=== PATIENT | female | born 1935 ===

== ENCOUNTER 2017-01-09 08:42 | Inpatient (IN) | payer MEDICAID, SELFPAY ==
--- NOTE | 2017-01-09 09:16 | ED PDOC ---
HPI: SOB/CHF/COPD Time Seen by Provider: 01/09/17 08:54 Chief Complaint (Nursing): Shortness Of Breath Chief Complaint (Provider): SOB, dizziness History Per: Patient History/Exam Limitations: no limitations Onset/Duration Of Symptoms: Days Current Symptoms Are (Timing): Still Present Associated Symptoms: Dizziness Additional Complaint(s): The pt is a 81yo female, PMHx of hypothyroidsm, accompanied to the ED by her family, presents for evaluation of shortness of breath worse upon exertion with associated dizziness. Per pt's family, the pt is unable to walk for long durations without feeling short of breath. Pt additionally complaining of right sided arm pain. She denies any numbness or tingling. She offers no additional medical complaints. PCP: Melissa SINGH Past Medical History Reviewed: Historical Data, Nursing Documentation, Vital Signs Vital Signs: Last Vital Signs Temp 97.9 F 01/09/17 11:24 Pulse 60 01/09/17 11:24 Resp 18 01/09/17 11:24 BP 165/67 H 01/09/17 11:24 Pulse Ox 96 01/09/17 10:01 - Medical History PMH: HTN, Hypercholesterolemia, Hypothyroidism - Family History Family History: States: Unknown Family Hx - Living Arrangements Living Arrangements: With Family - Social History Current smoker - smoking cessation education provided: No Alcohol: None Drugs: Denies - Home Medications Home Medications: Ambulatory Orders Medication Instructions Recorded Amoxicillin/Clavulanate [Augmentin 1 tab PO Q12H 01/09/17 875 MG-125 MG Tab] Calcium Carbonate/Vitamin D3 1 tab PO DAILY 01/09/17 [Calcium 600 + Vit D Tablet] Losartan [Cozaar] 25 mg PO DAILY 01/09/17 - Allergies Allergies/Adverse Reactions: Allergies Allergy/AdvReac Type Severity Reaction Status Date / Time No Known Allergies Allergy Verified 01/09/17 09:48 Review of Systems ROS Statement: Except As Marked, All Systems Reviewed And Found Negative Cardiovascular: Positive for: Light Headedness Respiratory: Positive for: Shortness of Breath, SOB with Exertion Physical Exam - Reviewed Nursing Documentation Reviewed: Yes Vital Signs Reviewed: Yes - Physical Exam Appears: Positive for: Well, Non-toxic, No Acute Distress Head Exam: Positive for: ATRAUMATIC, NORMAL INSPECTION, NORMOCEPHALIC Skin: Positive for: Normal Color, Warm, DRY Eye Exam: Positive for: EOMI, Normal appearance, PERRL Neck: Positive for: Normal, Supple Cardiovascular/Chest: Positive for: Regular Rate, Rhythm. Negative for: Murmur , Other (JVD, hepatojugular reflex) Respiratory: Positive for: Crackles (present bilaterally at base of lungs). Negative for: Respiratory Distress Extremity: Positive for: Normal ROM. Negative for: Pedal Edema, Swelling Neurologic/Psych: Positive for: Alert, Oriented - Laboratory Results Result Diagrams: 01/09/17 09:17 01/09/17 09:17 - ECG ECG: Positive for: Interpreted By Me, Viewed By Me ECG Rhythm: Positive for: Sinus Bradycardia. Negative for: ST/T Changes Rate: 51 O2 Sat by Pulse Oximetry: 98 (RA) Pulse Ox Interpretation: Normal Medical Decision Making Medical Decision Making: Time: 0900 Impression: SOB with exertion Plan: * CXR * EKG * Bloodwork * Reassess Scribe Attestation: Documented by Luz Lewis acting as a scribe for Claudia Louise MD. Provider Attestation: All medical record entries made by the Scribe were at my direction and personally dictated by me. I have reviewed the chart and agree that the record accurately reflects my personal performance of the history, physical exam, medical decision making, and the department course for this patient. I have also personally directed, reviewed, and agree with the discharge instructions and disposition. Disposition - Clinical Impression Clinical Impression: Exertional dyspnea - Patient ED Disposition Is Patient to be Admitted: Yes Doctor Will See Patient In The: Hospital - Disposition Disposition: Transfer of Care Disposition Time: 11:00 Condition: FAIR - Pt Status Changed To: Hospital Disposition Of: Observation - POA Present On Arrival: None
[2017-01-09 09:34] LABS: BASO % 0.6 % (0.0-2.0); EOS # 0.2 K/uL (0.0-0.7); EOS % 3.9 % (0.0-4.0); HEMATOCRIT 31.4 % (34.0-47.0); LYMPH # 1.6 K/uL (1.0-4.3); LYMPH % 32.5 % (20.0-40.0); MEAN CELL VOLUME 91.2 fl (81.0-99.0); MEAN CORPUSCULAR HEMOGLOBIN 30.5 pg (27.0-31.0); MEAN CORPUSCULAR HGB CONC 33.4 g/dL (33.0-37.0); MEAN PLATELET VOLUME 10.2 fl (7.2-11.7); MONO # 0.5 K/uL (0.0-0.8); MONO % 9.5 % (0.0-10.0); NEUT # 2.6 K/uL (1.8-7.0); NEUT % 53.5 % (50.0-75.0); NRBC % 0.1 % (0.0-0.0); RED CELL DISTRIBUTION WIDTH 13.3 % (11.5-14.5); WHITE BLOOD COUNT 4.8 K/uL (4.8-10.8)
[2017-01-09 09:57] LABS: CHLORIDE 108 mmol/L (98-107)
[2017-01-09 09:58] LABS: POTASSIUM 4.4 MMOL/L (3.6-5.0); SODIUM 140 mmol/l (132-148)
[2017-01-09 10:00] LABS: ALB/GLOB RATIO 1.2 (1.0-2.1); ALKALINE PHOSPHATASE 102 U/L (38-126); AST/SGOT 37 U/L (14-36); BILIRUBIN,TOTAL 0.8 mg/dl (0.2-1.3); BLOOD UREA NITROGEN 17 mg/dl (7-17); CARBON DIOXIDE 26 mmol/L (22-30); GFR AFRICAN-AMERICAN > 60; TOTAL PROTEIN 7.8 G/DL (6.3-8.2)
[2017-01-09 10:01] LABS: ALT/SGPT 38 U/L (9-52); CALCIUM 9.5 mg/dL (8.4-10.2); GLUCOSE,RANDOM 88 mg/dL (65-105)
[2017-01-09 10:11] LABS: PARTIAL THROMBOPLASTIN TIME 29.1 Seconds (25.6-37.1)
--- NOTE | 2017-01-09 12:20 | RAD ---
HISTORY: exertional dyspnea COMPARISON: Chest x-ray performed 01/03/17 TECHNIQUE: Chest PA and lateral FINDINGS: LUNGS: No focal consolidation. Please note that chest x-ray has limited sensitivity for the detection of pulmonary masses. PLEURA: No significant pleural effusion identified. No definite pneumothorax . CARDIOVASCULAR: Heart size appears within normal limits. Ectatic aorta containing atherosclerotic calcifications. OSSEOUS STRUCTURES: Osseous demineralization. Degenerative changes. VISUALIZED UPPER ABDOMEN: Unremarkable. OTHER FINDINGS: None. IMPRESSION: No focal consolidation, significant pleural effusion, or definite pneumothorax identified.
--- NOTE | 2017-01-09 12:49 | CP.PCM.HP ---
History of Present Illness - History of Present Illness History of Present Illness: 81 year old female, PMHx of hypothyroidsm and HTN presented to [facility] for worsening dyspnea on exertion and fatigue. Patient reports exertional dyspnea began approximately 1 year ago. However, she experienced worsening dyspnea on exertion with associated dizziness yesterday. Pt unable to walk 1 block, she was accompanied by daughters at that time and she was taken home to rest where symptoms improved. Currently patient does not have any dizziness or shortness of breath. She denies hx of NH, asthma, COPD, CHF and smoking history. She was seen at [facility] last week with similar symptoms, sent for echo scheduled for this Saturday. She is accompanied by her family who confirm the history the patient has provided. PMD: [facility]: Dr. Aden PMH: HTN, Hypothyroidism Medications: Losartan 25mg PO daily Levothyroxine 75mcg Allergies: NKDA Social: denies tobacco, etoh, illicit drug use. ED course: VS: T: 98.3, HR: 55, BP:189/73, RR: 18, SpO2: 98%. CBC: 4.8 > 10.5 /31.4 <119 CMP: 140/4.4 108/26 17/1.0 < 88 AST: 37 ALT: 38 Troponins negative x1 ProBNP: 290 CXR:No focal consolidation, significant pleural effusion, or definite pneumothorax identified. EKG: Sinus nuvia : hr 51. Present on Admission - Present on Admission Any Indicators Present on Admission: No Review of Systems - Constitutional Constitutional: absent: Anorexia, Chills, Fever Past Patient History - Past Social History Alcohol: None Drugs: Denies - CARDIAC Hx Hypercholesterolemia: Yes Hx Hypertension: Yes - NEUROLOGICAL Hx Dizziness: Yes - ENDOCRINE/METABOLIC Hx Hypothyroidism: Yes - MUSCULOSKELETAL/RHEUMATOLOGICAL Hx Musculoskeletal Disorders: Yes - PSYCHIATRIC Hx Substance Use: No - SURGICAL HISTORY Hx Surgeries: No - ANESTHESIA Hx Anesthesia: No Meds Allergies/Adverse Reactions: Allergies Allergy/AdvReac Type Severity Reaction Status Date / Time No Known Allergies Allergy Verified 01/09/17 09:48 Physical Exam - Constitutional Appears: Non-toxic - Head Exam Head Exam: NORMAL INSPECTION - Eye Exam Eye Exam: Normal appearance - ENT Exam ENT Exam: Mucous Membranes Moist - Respiratory Exam Respiratory Exam: Rales (bilateral posterior lung bases), NORMAL BREATHING PATTERN (breathing comfortably on room air) - Cardiovascular Exam Cardiovascular Exam: Bradycardia (sinus), +S1, +S2 - GI/Abdominal Exam GI & Abdominal Exam: Normal Bowel Sounds, Soft - Extremities Exam Extremities exam: Positive for: normal inspection. Negative for: pedal edema - Neurological Exam Neurological exam: Alert, CN II-XII Intact, Oriented x3 - Psychiatric Exam Psychiatric exam: Normal Affect, Normal Mood - Skin Skin Exam: Dry, Intact, Normal Color Results - Vital Signs Recent Vital Signs: Last Vital Signs Temp 97.8 F 01/09/17 12:42 Pulse 59 L 01/09/17 12:42 Resp 18 01/09/17 12:42 BP 130/68 01/09/17 12:42 Pulse Ox 99 01/09/17 12:42 - Labs Result Diagrams: 01/09/17 09:17 01/09/17 09:17 Assessment & Plan (1) Exertional dyspnea Assessment and Plan: Chronic exertional dyspnea, recent worsening with associated dizziness, likely related to bradycardia. Given that patients ProBNP was WNL and bradycardia was recorded on customs verifier, symptoms are likely secondary to bradycardia and not CHF. Will follow up cardiology recommendations. -Echo ordered, pending report. -Will admit to telemetry: -echo done, pending report. -EKG: sinus bradycardia -monitor vital signs -Cardiology consult : case discussed with Dr. Teddy Almonte Status: Acute (2) Abnormal CXR (chest x-ray) Assessment and Plan: CXR: Impression: Heart size appears within normal limits. Ectatic aorta containing atherosclerotic calcifications. Osseous demineralization. Degenerative changes. No focal consolidation, significant pleural effusion, or definite pneumothorax identified. -exam +crackles, rule out pneumonia -start rocephin empirically Status: Acute (3) HTN (hypertension) Assessment and Plan: -patient did not take BP medication today, will administer. -continue home medications -losartan 25 mg PO Status: Acute (4) Hypothyroidism Assessment and Plan: -not controlled: TSHL 7.25 -continue home medications : Levothyroxine 75mcg -f/u repeat TSH, T4 Status: Acute (5) DVT prophylaxis Assessment and Plan: SCDS for now given thrombocytopenia Status: Acute
[2017-01-09] MEDS: Amoxicillin-Clav 875-125 mg Tab PO SCH (21:06)
[2017-01-10] MEDS ORDERED: Alum-Mag Hydrox-Simethicone Susp (30 mL) PO ONE (04:04)
[2017-01-10 04:23] LABS: RBC URINE 1 /hpf (0-3); URINE BILIRUBIN NEGATIVE (NEGATIVE); URINE BLOOD NEGATIVE (NEGATIVE); URINE COLOR YELLOW (YELLOW); URINE GLUCOSE (UA) NEG (Normal); URINE KETONE NEGATIVE (NEGATIVE); URINE LEUKOCYTE ESTERASE NEG Leu/uL (Negative); URINE PROTEIN NEGATIVE (NEGATIVE); URINE UROBILINOGEN 0.2-1.0 mg/dL (0.2-1.0); WBC URINE 1 /hpf (0-5)
[2017-01-10 04:35] LABS: BLOOD UREA NITROGEN 14 mg/dl (7-17); CALCIUM 9.3 mg/dL (8.4-10.2); CARBON DIOXIDE 27 mmol/L (22-30); CHLORIDE 107 mmol/L (98-107); GFR AFRICAN-AMERICAN > 60; GLUCOSE,RANDOM 90 mg/dL (65-105); POTASSIUM 4.4 MMOL/L (3.6-5.0); SODIUM 143 mmol/l (132-148)
[2017-01-10 04:41] LABS: BASO % 0.8 % (0.0-2.0); EOS # 0.2 K/uL (0.0-0.7); EOS % 3.8 % (0.0-4.0); HEMATOCRIT 30.2 % (34.0-47.0); LYMPH # 1.8 K/uL (1.0-4.3); LYMPH % 32.9 % (20.0-40.0); MEAN CELL VOLUME 91.5 fl (81.0-99.0); MEAN CORPUSCULAR HEMOGLOBIN 30.6 pg (27.0-31.0); MEAN CORPUSCULAR HGB CONC 33.4 g/dL (33.0-37.0); MEAN PLATELET VOLUME 10.2 fl (7.2-11.7); MONO # 0.6 K/uL (0.0-0.8); NEUT # 2.9 K/uL (1.8-7.0); NEUT % 51.5 % (50.0-75.0); NRBC % 0.1 % (0.0-0.0); RED CELL DISTRIBUTION WIDTH 13.5 % (11.5-14.5); WHITE BLOOD COUNT 5.6 K/uL (4.8-10.8)
--- NOTE | 2017-01-10 04:46 | CP.PCM.PCO ---
Addendum Addendum: 01/10/17 04:05 CC: Chest pain onset with brief transient heart block 81F developed constant chest pressure radiating into her back after development of transient heart block without associated dyspnea, tachypnea, diaphoresis, dizziness, headache, or nausea. She does report worsening on deep inspiration but no change with cough and denies reflux-like symptoms. She describes experiencing similar pain like this intermittently prior to admission. Interventions: Oxygen, EKG, CK-MB/Troponins w/ AM labs, Mylanta VSS: HR- 53(SR), BP- 158/75, SpO2- 98% Review of telemetry strip showing 2 degree 2:1 Heart block EKG: SB, HR-53, no ST-T changes, no acute changes when compared to prior EKG 01/09 GEN: NAD, verbal, no diaphoresis PULM: no tachypnea, non-labored, good air entry, bibasilar rales/no wheeze/no rhonchi CARDIO: SB, regular, no murmurs appreciated ABD: soft, NTND EXT: no edema, palpable pulses 81F with chest pressure, EKG w/o acute changes, Troponins thus far negative. Ddx angina vs. GERD vs. pleuritic. Patient no longer with chest pressure, but continues to go in and out of heart block. - Oxygen, 2LNC - CBC, BMP, CK-MB, Troponin, TSH/T4 - EKG - Mylanta 30ml, PO, x1 - c/w Telemetry monitoring - d/w Dr Bee who recommended adding a d-dimer
[2017-01-10 04:52] LABS: T4 7.18 ug/dl (5.5-11.0)
[2017-01-10] MEDS: Levothyroxine 75 MCG TAB PO SCH (05:54)
--- NOTE | 2017-01-10 06:28 | CP.PCM.PN ---
Subjective - Date & Time of Evaluation Date of Evaluation: 01/10/17 Time of Evaluation: 07:50 - Subjective Subjective: Overnight events: pt had episode of chest pain, pain on inspiriation No acute EKG changes, troponins negative. D.Dimer: 0.08 L Patient seen and examined bedside this morning. Endorses that symptoms of chest pain and pain on inspiration have resolved. Resting comfortably in bed. No complaints at present of chest pain, dyspnea, or dizziness. She notes long hx of left lower extremity cramping has been going on for at least 1 year. Right neck cervical LN present for 4-5 months. Patient reports decrease in size and tenderness of node. Objective - Vital Signs/Intake and Output Vital Signs (last 24 hours): Temp Pulse Resp BP Pulse Ox 98.1 F 56 L 18 153/75 H 100 01/10/17 04:56 01/10/17 04:56 01/10/17 04:56 01/10/17 04:56 01/10/17 04:56 - Medications Medications: Current Medications Amoxicillin/Clavulanate Potassium (Augmentin 875 Mg-125 Mg Tab) 1 tab PO Q12 [facility] Last Admin: 01/09/17 21:06 Dose: 1 tab Levothyroxine Sodium (Synthroid) 75 mcg PO DAILY@0630 [facility] Last Admin: 01/10/17 05:54 Dose: 75 mcg Losartan Potassium (Cozaar) 25 mg PO DAILY [facility] - Labs Labs: 01/10/17 04:00 01/10/17 04:00 PT 10.9 Seconds (9.8-13.1) 01/09/17 09:17 INR 1.0 (0.9-1.2) 01/09/17 09:17 APTT 29.1 Seconds (25.6-37.1) 01/09/17 09:17 - Constitutional Appears: No Acute Distress - Head Exam Head Exam: NORMAL INSPECTION - Eye Exam Eye Exam: Normal appearance - ENT Exam ENT Exam: Mucous Membranes Moist - Respiratory Exam Respiratory Exam: Rales (bilateral lung bases), NORMAL BREATHING PATTERN. absent: Accessory Muscle Use, Respiratory Distress - Cardiovascular Exam Cardiovascular Exam: Bradycardia, REGULAR RHYTHM, +S1, +S2 - GI/Abdominal Exam GI & Abdominal Exam: Soft. absent: Tenderness - Extremities Exam Extremities Exam: absent: Pedal Edema, Tenderness - Neurological Exam Neurological Exam: Alert, Awake, CN II-XII Intact - Skin Skin Exam: Dry, Intact, Normal Color Assessment and Plan (1) Exertional dyspnea Assessment & Plan: 81 year old female with HTN and uncontrolled Hypothyroidism presented with worsening exertional dyspnea with new onset bradycardia admitted for same, found to have 2:1 AV block. Exertional dyspnea: chronic, recent worsening with associated dizziness, secondary to 2:1 AV block with bradycardia. -echo done, pending report. -EKG: sinus bradycardia, 2:1 AV block on EKG this AM -Patient seen with Dr. Castrejon (cardiology): recommends pacemaker placement. Will discuss with family today, if amenable will schedule for surgery. -monitor vital signs Status: Acute (2) Abnormal CXR (chest x-ray) Assessment & Plan: CXR: Impression: Heart size appears within normal limits. Ectatic aorta containing atherosclerotic calcifications. Osseous demineralization. Degenerative changes. No focal consolidation, significant pleural effusion, or definite pneumothorax identified. -exam +crackles, rule out pneumonia -on rocephin (day 2). consider d/c given patient is afebrile without leukocytosis. Status: Acute (3) HTN (hypertension) Assessment & Plan: -mildly elevated. likely in response to patients bradycardia -continue home medications for now. -losartan 25 mg PO -consider increasing to BID Status: Acute (4) Hypothyroidism Assessment & Plan: -not controlled: TSH: 7.25 -->12.7, T4:7.18 -dose recently increased from levothroxine 50 mcg to 75mcg -continue current dose: Levothyroxine 75mcg Status: Chronic (5) Anemia Assessment & Plan: Normocytic anemia -chronic -hgb: 10.1 -monitor. Status: Chronic (6) DVT prophylaxis Assessment & Plan: scds for now given thrombocytopenia Status: Acute (7) Cervical lymphadenopathy Assessment & Plan: chronic x 4-5 months as per patient, however after chart review pt had CT neck in 2014 for same: . patient started on augmentin as outpatient, day 8 of augmentin. Patient reports improvement of size and tenderness of LN. will monitor while admitted, consider bx if no improvement with antibiotics. Status: Chronic
[2017-01-10] MEDS: Amoxicillin-Clav 875-125 mg Tab PO SCH ×2 (08:25→21:23)
--- NOTE | 2017-01-10 11:00 | CP.PCM.CON ---
History of Present Illness - History of Present Illness History of Present Illness: Full Note Dictated. 2:1 A:V block Hypertension Hypothyroidism Pt will need a PPM Will discuss it with her and her family and if they are agreeable will arrange it. Past Patient History - Past Social History Alcohol: None Drugs: Denies - CARDIAC Hx Hypercholesterolemia: Yes Hx Hypertension: Yes - NEUROLOGICAL Hx Dizziness: Yes - ENDOCRINE/METABOLIC Hx Hypothyroidism: Yes - HEMATOLOGICAL/ONCOLOGICAL Hx AIDS: No Hx Human Immunodeficiency Virus (HIV): No - MUSCULOSKELETAL/RHEUMATOLOGICAL Hx Musculoskeletal Disorders: Yes - PSYCHIATRIC Hx Substance Use: No - SURGICAL HISTORY Hx Surgeries: No - ANESTHESIA Hx Anesthesia: No Meds Allergies/Adverse Reactions: Allergies Allergy/AdvReac Type Severity Reaction Status Date / Time No Known Allergies Allergy Verified 01/09/17 09:48 - Medications Medications: Current Medications Amoxicillin/Clavulanate Potassium (Augmentin 875 Mg-125 Mg Tab) 1 tab PO Q12 [facility] Last Admin: 01/10/17 08:25 Dose: 1 tab Levothyroxine Sodium (Synthroid) 75 mcg PO DAILY@0630 [facility] Last Admin: 01/10/17 05:54 Dose: 75 mcg Losartan Potassium (Cozaar) 25 mg PO DAILY [facility] Last Admin: 01/10/17 08:25 Dose: 25 mg Results - Vital Signs Recent Vital Signs: Last Vital Signs Temp 97.8 F 01/10/17 08:00 Pulse 52 L 01/10/17 09:00 Resp 18 01/10/17 08:00 BP 163/75 H 01/10/17 08:25 Pulse Ox 97 01/10/17 08:00 - Labs Result Diagrams: 01/10/17 04:00 01/10/17 04:00 Labs: Laboratory Results - last 24 hr 01/09/17 01/10/17 01/10/17 18:23 04:00 04:00 WBC 5.6 RBC 3.30 L Hgb 10.1 L Hct 30.2 L MCV 91.5 MCH 30.6 MCHC 33.4 RDW 13.5 Plt Count 115 L MPV 10.2 Neut % (Auto) 51.5 Lymph % (Auto) 32.9 [place] % (Auto) 11.0 H Eos % (Auto) 3.8 Baso % (Auto) 0.8 Neut # 2.9 Lymph # 1.8 [place] # 0.6 Eos # 0.2 Baso # 0.0 D-Dimer, Quantitative Sodium Potassium Chloride Carbon Dioxide Anion Gap BUN Creatinine Est GFR ( Amer) Est GFR (Non-Af Amer) Random Glucose Calcium CK-MB (Mass) Troponin I < 0.0120 Thyroxine (T4) TSH 3rd Generation Urine Color Yellow Urine Clarity Clear Urine pH 6.0 Ur Specific [place] 1.012 Urine Protein Negative Urine Glucose (UA) Neg Urine Ketones Negative Urine Blood Negative Urine Nitrate Negative Urine Bilirubin Negative Urine Urobilinogen 0.2-1.0 Ur Leukocyte Esterase Neg Urine RBC (Auto) 1 Urine Microscopic WBC 1 Ur Squamous Epith Cells < 1 01/10/17 01/10/17 04:00 05:10 WBC RBC Hgb Hct MCV MCH MCHC RDW Plt Count MPV Neut % (Auto) Lymph % (Auto) [place] % (Auto) Eos % (Auto) Baso % (Auto) Neut # Lymph # [place] # Eos # Baso # D-Dimer, Quantitative 0.82 H Sodium 143 Potassium 4.4 Chloride 107 Carbon Dioxide 27 Anion Gap 13 BUN 14 Creatinine 0.9 Est GFR ( Amer) > 60 Est GFR (Non-Af Amer) > 60 Random Glucose 90 Calcium 9.3 CK-MB (Mass) < 0.22 Troponin I < 0.0120 Thyroxine (T4) 7.18 TSH 3rd Generation 12.70 H Urine Color Urine Clarity Urine pH Ur Specific [place] Urine Protein Urine Glucose (UA) Urine Ketones Urine Blood Urine Nitrate Urine Bilirubin Urine Urobilinogen Ur Leukocyte Esterase Urine RBC (Auto) Urine Microscopic WBC Ur Squamous Epith Cells
--- NOTE | 2017-01-10 12:41 | CON ---
DATE: 01/10/2017 She is hospitalized in room 410, bed 1. HISTORY OF PRESENT ILLNESS: This 81-year-old female came in to the hospital with vague symptoms of f atigue and shortness of breath on exertion. She denies any lightheadedness or syncope. She is a leanna gstanding hypothyroid with hypertension and takes losartan for management of her hypertension. She i s not a smoker. She never suffered a myocardial infarction and denies any episode of chest pain or p edal edema. She denies any history of glaucoma or using any eyedrops. PHYSICAL EXAMINATION: GENERAL: Shows an elderly lady who is lying comfortably in bed, is able to get in and out of bed and ambulate in the room freely. VITAL SIGNS: Has a pulse rate that is between 60 beats a minute and 30 beats a minute, has a ____ of 130/70 mmHg. NECK: Her jugular venous pressure was not elevated. EXTREMITIES: There was no edema of lower extremity. The pedal pulses were well felt. Her jugular v enous pressure was not elevated. HEART: There were no carotid bruits. The apex was not palpable. The first and second heart sounds were normal. There was no murmur or gallop. LUNGS: There were no rales. ABDOMEN: Soft. Liver and spleen were not palpable. Her electrocardiogram: There were multiple of these done. Multiple of them demonstrate sinus rhythm with normal AV conduction with an essentially normal QRS pattern. Telemetry, though, shows repeated brief episodes of 2:1 AV conduction with a second-degree heart bloc k. An electrocardiogram done half an hour back now has captured this rhythm. Echocardiogram shows a well-functioning left ventricle. Labs show a normal renal function, normal electrolytes, normal potassium, particularly, and an elevat ed TSH, which indicates that she continues to be hypothyroid. Review of her home medications do not list thyroid replacement. So I am not sure if the patient was taking thyroid replacement at home and if the elevated TSH is a consequence of not taking replacement . 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 The patient would require a permanent pacemaker. Depending on her level of physical acti vity, it would either be a VVI or dual-chamber pacemaker. I will discuss it with the patient and her family before proceeding to make arrangements. In the meantime, she continues to be fairly asymptom atic and hemodynamically stable. Leon Almonte MD cc: [id number] TT: 01/10/2017 11:12:48 Confirmation # [id number] Dictation # [id number] jn
--- NOTE | 2017-01-10 16:30 | CON ---
DATE: 01/10/2017 LOCATION: Room 410. HISTORY OF PRESENT ILLNESS: This is a 81-year-old female with known history of hypertension and dysl ipidemia, and also recent diagnosis of hypothyroidism, currently on levothyroxine replacement therapy and has now been admitted because of persistent easy fatigability and progressive shortness of breat h, especially on exertion. She is being referred now for endocrine evaluation and management. PAST MEDICAL HISTORY: As mentioned above, history of hypertension and dyslipidemia. Also, history o f hypothyroidism, currently on a low-dose levothyroxine given as 50 mcg at home as noted. FAMILY HISTORY: Positive for hypertension and heart disease. SOCIAL HISTORY: The patient has supportive family. No known substance use. REVIEW OF SYSTEMS: As mentioned above, admits to generalized body weakness with easy fatigability an d tiredness and suboptimal energy level. Also admits to dizziness and lightheadedness, worse on the day of admission. Moreover, admits to progressive shortness of breath, especially on exertion, as no lorena. Her oral intake is variable with nausea, dyspepsia, and persistent habitual constipation. PHYSICAL EXAMINATION: GENERAL: Average-built female in no apparent distress. VITAL SIGNS: Blood pressure 140/80, pulse of 66 beats per minute and regular, temperature 98, respir ations 20. Height is 5 feet, weight is 144 pounds. HEENT: Head normocephalic. Eyes anicteric with pink conjunctivae. Fundoscopy not possible at this time. Ears, nose, and throat otherwise normal. NECK: Supple. Thyroid gland is normal size. No carotid bruits. No cervical adenopathy. CARDIOPULMONARY: Some adynamic precordium. S1, S2 are rapid and regular. LUNGS: Clear to auscultation. ABDOMEN: Flat, soft, with positive bowel sounds. EXTREMITIES: No peripheral edema. Pulses are +2 bilaterally. LABORATORY DATA: Her chemistries showed a BUN of 14, sodium 143, potassium 5.4, chloride 107, CO2 27 , glucose 90, and creatinine 0.9. Her thyroid study showed a T4 of 7.18 with a TSH of 12.70. ASSESSMENT: This is a 81-year-old female with overt hypothyroidism and clearly has a subtherapeutic levothyroxine dose regimen as mentioned. Will modify her current dose regimen and increase the levot hyroxine to 75 mcg once daily in the morning as ordered. Will obtain serial chemistries and suppleme nt accordingly as needed. Will also obtain serial thyroid studies and titrate her dose regimen accor oralia. It takes 4-6 weeks to normalize the TSH value as noted. Will follow. Roselyn Gomes MD cc: [id number] TT: 01/10/2017 16:29:50 Confirmation # [id number] Dictation # [id number]
[2017-01-10] MEDS ORDERED: Sodium Chloride 0.9% 50 ML IV ONE ×2 (18:17→18:33)
[2017-01-10] MEDS ORDERED: Iohexol 300 100 ML IJ ONE ×2 (18:17→18:33)
[2017-01-11] MEDS: Levothyroxine 75 MCG TAB PO SCH (06:11)
--- NOTE | 2017-01-11 06:46 | CP.PCM.PN ---
Subjective - Date & Time of Evaluation Date of Evaluation: 01/11/17 Time of Evaluation: 08:00 - Subjective Subjective: Patient seen and examined bedside. No acute events overnight. Patient lying in bed comfortably, she denies any dizziness, chest pain, dyspnea , nausea, vomiting, pedal edema. She is ambulating to the bathroom without difficulty. Patient reports neck lymph node is improved and is not tender to touch. Patient will be scheduled for pacemaker placement. Objective - Vital Signs/Intake and Output Vital Signs (last 24 hours): Temp Pulse Resp BP Pulse Ox 97.9 F 54 L 20 148/71 97 01/11/17 04:44 01/11/17 04:44 01/11/17 04:44 01/11/17 04:44 01/11/17 04:44 Intake and Output: 01/10/17 01/11/17 18:59 06:59 Intake Total 700 Balance 700 - Medications Medications: Current Medications Amoxicillin/Clavulanate Potassium (Augmentin 875 Mg-125 Mg Tab) 1 tab PO Q12 [facility] Last Admin: 01/10/17 21:23 Dose: 1 tab Levothyroxine Sodium (Synthroid) 75 mcg PO DAILY@0630 [facility] Last Admin: 01/11/17 06:11 Dose: 75 mcg Losartan Potassium (Cozaar) 50 mg PO DAILY [facility] - Labs Labs: PT 10.9 Seconds (9.8-13.1) 01/09/17 09:17 INR 1.0 (0.9-1.2) 01/09/17 09:17 APTT 29.1 Seconds (25.6-37.1) 01/09/17 09:17 - Constitutional Appears: No Acute Distress (lying in bed, resting comfortably.) - Head Exam Head Exam: NORMAL INSPECTION, NORMOCEPHALIC - Eye Exam Eye Exam: Normal appearance - Neck Exam Neck Exam: absent: Thyromegaly Additional comments: right cervical lymph node visible/palpable. - Respiratory Exam Respiratory Exam: Rales (bilateral bases), NORMAL BREATHING PATTERN - Cardiovascular Exam Cardiovascular Exam: Bradycardia, +S1, +S2 Additional comments: s1s2+ - GI/Abdominal Exam GI & Abdominal Exam: Soft. absent: Tenderness - Extremities Exam Extremities Exam: absent: Pedal Edema, Tenderness - Neurological Exam Neurological Exam: Alert, Awake, CN II-XII Intact - Skin Skin Exam: Dry, Intact Assessment and Plan (1) Exertional dyspnea Assessment & Plan: 81 year old female with HTN and uncontrolled Hypothyroidism presented with worsening exertional dyspnea with 2:1 AV block, bradycardia. Patient is for pacemaker placement. Exertional dyspnea: chronic, recent worsening with associated dizziness, secondary to 2:1 AV block with bradycardia. -echo done: EF: 30-35%, global hypokinesis, systolic function moderately impaired -EKG: sinus bradycardia, 2:1 AV block on EKG this AM -Dr. Castrejon (cardiology): recommends pacemaker placement. Will schedule surgery likely for saturday/saturday. plan discussed with family. -monitor vital signs Status: Acute (2) Abnormal CXR (chest x-ray) Assessment & Plan: -exam +crackles, CXR: Impression:Heart size appears within normal limits. Ectatic aorta containing atherosclerotic calcifications. Osseous demineralization. Degenerative changes. No focal consolidation, significant pleural effusion, or definite pneumothorax identified. -rocephin given x 1, patient is afebrile, asymptomatic, no leukocytosis -follow up report ct chest Status: Acute (3) HTN (hypertension) Assessment & Plan: -mildly elevated. likely in response to patients bradycardia secondary to 2:1 block -continue Losartan 50mg PO daily monitor Status: Acute (4) Hypothyroidism Assessment & Plan: -not controlled: TSH: 12.7, T4:7.18 -dose recently increased from levothroxine 50 mcg to 75mcg -continue current dose: Levothyroxine 75mcg -endo on consult: Dr. Gomes Status: Chronic (5) Anemia Assessment & Plan: Normocytic anemia -chronic, stable -hgb: 10.3 -monitor. Status: Chronic (6) DVT prophylaxis Assessment & Plan: patient has thrombocytopenia, monitor platelet count -will start lovenox 40mg sc daily and continue scds Status: Acute (7) Cervical lymphadenopathy Assessment & Plan: chronic x 4-5 months as per patient, however after chart review pt had CT neck in 2014 for same. patient started on augmentin as outpatient, day 8 of augmentin. Patient reports improvement of size and tenderness of LN. will monitor while admitted, consider bx if no improvement with antibiotics. Follow up report : CT neck/chest Status: Chronic (8) Hyperlipidemia Assessment & Plan: follow up as outpatient Status: Acute
--- NOTE | 2017-01-11 07:23 | CARD ---
APPROVED REPORT EKG Measurement Heart [id number] [place] 200P29 [id number] <Conclusion> Sinus bradycardia Otherwise normal ECG
--- NOTE | 2017-01-11 07:28 | CARD ---
APPROVED REPORT EKG Measurement Heart [id number] [place] 188P14 [id number] <Conclusion> Sinus bradycardia Otherwise normal ECG
--- NOTE | 2017-01-11 07:28 | CARD ---
APPROVED REPORT EKG Measurement Heart [id number] [place] 188P21 [id number] <Conclusion> Sinus bradycardia Otherwise normal ECG
[2017-01-11] MEDS: Amoxicillin-Clav 875-125 mg Tab PO SCH ×2 (08:39→21:37)
--- NOTE | 2017-01-11 10:19 | CP.PCM.PN ---
Subjective - Date & Time of Evaluation Date of Evaluation: 01/11/17 Time of Evaluation: 10:05 - Subjective Subjective: Pt has remained symptom free over night Telemetry shows periodic 2:1 A:V block with transient HR of low 30s Have spoken with surgeon and OR Pacer most likely to be implanted Sat afternoon or Saturday morning Will find out today. Pt is stable. Objective - Vital Signs/Intake and Output Vital Signs (last 24 hours): Temp Pulse Resp BP Pulse Ox 98.0 F 55 L 20 145/75 95 01/11/17 08:00 01/11/17 08:39 01/11/17 08:00 01/11/17 08:39 01/11/17 08:00 Intake and Output: 01/11/17 01/11/17 06:59 18:59 Intake Total 700 Balance 700 - Medications Medications: Current Medications Amoxicillin/Clavulanate Potassium (Augmentin 875 Mg-125 Mg Tab) 1 tab PO Q12 [facility] Last Admin: 01/11/17 08:39 Dose: 1 tab Levothyroxine Sodium (Synthroid) 75 mcg PO DAILY@0630 [facility] Last Admin: 01/11/17 06:11 Dose: 75 mcg Losartan Potassium (Cozaar) 50 mg PO DAILY [facility] Last Admin: 01/11/17 08:39 Dose: 50 mg - Labs Labs: PT 10.9 Seconds (9.8-13.1) 01/09/17 09:17 INR 1.0 (0.9-1.2) 01/09/17 09:17 APTT 29.1 Seconds (25.6-37.1) 01/09/17 09:17
--- NOTE | 2017-01-11 11:06 | CARD ---
APPROVED REPORT EXAM: Two-dimensional and M-mode echocardiogram with Doppler and color Doppler. Other Information Quality : FairRhythm : Technically limited study due to body habitus. 2D DIMENSIONS IVSd1.56 (0.7-1.1cm)LVDd4.04 (3.9-5.9cm) LVOT Diameter1.67 (1.8-2.4cm)PWd1.30 (0.7-1.1cm) IVSs1.16 (0.8-1.2cm)LVDs3.55 (2.5-4.0cm) FS (%) 12.3 %PWs1.36 (0.8-1.2cm) M-Mode DIMENSIONS Left Atrium (MM)3.40 (2.5-4.0cm)IVSd1.24 (0.7-1.1cm) Aortic Root2.90 (2.2-3.7cm)LVDd5.83 (4.0-5.6cm) Aortic Cusp Exc.1.90 (1.5-2.0cm)PWd1.10 (0.7-1.1cm) IVSs1.96 cmFS (%) 40 % LVDs3.48 (2.0-3.8cm)PWs1.74 cm Aortic Valve AoV Peak Scyeamdp372.1cm/sAoV VTI48.2cmAO Peak GR.18mmHg LVOT Peak Bflhmbnt968.8cm/sLVOT VTI35.18cmAO Mean GR.10mmHg TALHA (VMAX)0.81zi8CUO (VTI)0.98cm2 Mitral Valve MV E Xhgsxhen28.6cm/sMV DECEL TXRO456pjZY A Ravkfmkz52.9cm/s MV ZIL47bmH/A ratio0.8MVA (PHT)2.58cm2 TDI Lateral E' Peak V6.60cm/sMedial E' Peak V5.30cm/sE/Lateral E'11.0 E/Medial E'13.7 Pulmonary Valve PV Peak Fbgndzeq33.8cm/s Tricuspid Valve TR Peak Njbtxhck457jm/sRAP PJTYWAKN21jmPcIO Peak Gr.25mmHg XOLD49muEm LEFT VENTRICLE The left ventricle is normal size. There is normal left ventricular wall thickness. The systolic function is moderately impaired. The Ejection Fraction is 30-35%. There is global hypokinesis of the left ventricle. The left ventricular diastolic function is normal. No left ventricle thrombus noted on this study. There is no mass noted in the left ventricle. RIGHT VENTRICLE The right ventricle is normal size. There is normal right ventricular wall thickness. The right ventricular systolic function is normal. ATRIA The left atrium size is normal. The right atrium size is normal. The interatrial septum is intact with no evidence for an atrial septal defect. AORTIC VALVE The aortic valve is normal in structure and function. No aortic regurgitation is present. There is no aortic valvular stenosis. There is no aortic valvular vegetation. MITRAL VALVE The mitral valve is normal in structure and function. There is no evidence of mitral valve prolapse. There is no mitral valve stenosis. There is no mitral valve regurgitation noted. TRICUSPID VALVE The tricuspid valve is normal in structure and function. There is no tricuspid valve regurgitation noted. There is no tricuspid valve prolapse or vegetation. There is no tricuspid valve stenosis. PULMONIC VALVE The pulmonary valve is normal in structure and function. There is no pulmonic valvular regurgitation. There is no pulmonic valvular stenosis. GREAT VESSELS The aortic root is normal in size. The IVC is normal in size and collapses >50% with inspiration. PERICARDIAL EFFUSION The pericardium appears normal. There is no pleural effusion. <Conclusion> Technically poor echo The left ventricle is normal size. The systolic function is moderately impaired. The Ejection Fraction is 30-35%. There is global hypokinesis of the left ventricle.
[2017-01-11 11:52] LABS: BASO % 0.4 % (0.0-2.0); EOS # 0.2 K/uL (0.0-0.7); EOS % 4.6 % (0.0-4.0); HEMATOCRIT 30.6 % (34.0-47.0); LYMPH # 1.9 K/uL (1.0-4.3); LYMPH % 35.1 % (20.0-40.0); MEAN CELL VOLUME 91.4 fl (81.0-99.0); MEAN CORPUSCULAR HEMOGLOBIN 30.8 pg (27.0-31.0); MEAN CORPUSCULAR HGB CONC 33.7 g/dL (33.0-37.0); MEAN PLATELET VOLUME 10.7 fl (7.2-11.7); MONO # 0.5 K/uL (0.0-0.8); MONO % 9.8 % (0.0-10.0); NEUT # 2.7 K/uL (1.8-7.0); NEUT % 50.1 % (50.0-75.0); NRBC % 0.1 % (0.0-0.0); RED CELL DISTRIBUTION WIDTH 13.4 % (11.5-14.5); WHITE BLOOD COUNT 5.3 K/uL (4.8-10.8)
--- NOTE | 2017-01-11 14:30 | CARD ---
APPROVED REPORT EKG Measurement Heart [id number] [place] 180P55 [id number] <Conclusion> Sinus rhythm with 2nd degree AV block with 2:1 AV conduction Abnormal ECG
--- NOTE | 2017-01-11 14:31 | CARD ---
APPROVED REPORT EKG Measurement Heart [id number] [place] 204P38 [id number] <Conclusion> Sinus bradycardia Possible Inferior infarct, age undetermined Abnormal ECG
[2017-01-11] MEDS: Enoxaparin 40 mg Syringe SC SCH (14:49)
--- NOTE | 2017-01-11 14:57 | CT ---
PROCEDURE: CT Neck, Chest, with contrast HISTORY: dyspnea and enlarge right side of lymph node COMPARISON: 03/25/2015 TECHNIQUE: Contrast dose: 95 cc of Omnipaque 300 Radiation dose: Total exam DLP = 1037 mGy-cm. This CT exam was performed using one or more of the following dose reduction techniques: Automated exposure control, adjustment of the mA and/or kV according to patient size, and/or use of iterative reconstruction technique. FINDINGS: CT OF THE NECK: PHARYNX: Nasopharynx: Unremarkable. Oropharnx: Unremarkable. Hypopharynx: Unremarkable. LYMPH NODES: There is an enhancing node in the posterior neck on the right measuring 10 x 13 mm. This can be seen previously. Enhancing nodes are also seen along the posterior border of the right sternocleidomastoid muscle. There is also some infiltration of the adjacent soft tissues. The largest node this region measures 15 mm. Findings are seen on images 33 through 42. Lymph nodes were seen in this area previously but the soft tissue infiltration was not present. VASCULATURE: Unremarkable. GLANDS: Unremarkable. CERVICAL SPINE: Unremarkable. CT OF THE CHEST: LUNGS: Ground-glass interstitial densities are seen MEDIASTINUM: There is mural thrombus in the aortic arch Normal sized heart. Pulmonary arterial truck unremarkable. No vascular congestion. No lymphadenopathy. PLEURA: No pleural fluid. No pneumothorax. BONES: No fracture. No destructive lesion. IMPRESSION: Adenopathy in the right posterior neck adjacent to the sternocleidomastoid muscle. There is infiltration of the adjacent fat planes. Findings are suspicious for malignant adenopathy versus infected lymph nodes
--- NOTE | 2017-01-11 20:28 | PN ---
DATE: 01/11/2017 LOCATION: Room 410. This is a 81-year-old female presenting here with progressive shortness of breath and also now being followed closely for metabolic management with known history of hypothyroidism as noted thereof. Her latest chemistry showed a BUN of 14, sodium 143, potassium 4.4, chloride 107, CO2 of 27, glucose 90, and creatinine 0.9. Her thyroxine levels showed a T4 of 7.18 with a TSH of 12.70. So at this time, will continue the same levothyroxine dose given at 75 mcg daily to allow for dose equilibration. Wi ll obtain serial chemistries and supplement accordingly as needed and also obtain serial thyroid stud ies and titrate her dose regimen accordingly. Will follow. Roselyn Gomes MD cc: [id number] TT: 01/11/2017 20:27:51 Confirmation # [id number] Dictation # [id number]
[2017-01-12] MEDS: Levothyroxine 75 MCG TAB PO SCH (06:16)
[2017-01-12 07:18] LABS: HEMATOCRIT 31.1 % (34.0-47.0); MEAN CELL VOLUME 91.5 fl (81.0-99.0); MEAN CORPUSCULAR HEMOGLOBIN 30.3 pg (27.0-31.0); MEAN CORPUSCULAR HGB CONC 33.1 g/dL (33.0-37.0); RED CELL DISTRIBUTION WIDTH 13.4 % (11.5-14.5); WHITE BLOOD COUNT 5.4 K/uL (4.8-10.8)
--- NOTE | 2017-01-12 07:56 | CP.PCM.PN ---
Subjective - Date & Time of Evaluation Date of Evaluation: 01/12/17 Time of Evaluation: 08:45 - Subjective Subjective: No acute events overnight. Patient seen and examined bedside. Patient lying in bed, no chest pain, shortness of breath or dizziness, no pedal edema. Patient is currently scheduled for pacemaker placement on Saturday at 7:45. Objective - Vital Signs/Intake and Output Vital Signs (last 24 hours): Temp Pulse Resp BP Pulse Ox 98.4 F 56 L 20 138/69 95 01/12/17 05:16 01/12/17 05:16 01/12/17 05:16 01/12/17 05:16 01/12/17 05:16 - Medications Medications: Current Medications Amoxicillin/Clavulanate Potassium (Augmentin 875 Mg-125 Mg Tab) 1 tab PO Q12 [facility] Last Admin: 01/11/17 21:37 Dose: 1 tab Enoxaparin Sodium (Lovenox) 40 mg SC DAILY [facility] PRN Reason: Protocol Stop: 01/14/17 00:01 Last Admin: 01/11/17 14:49 Dose: 40 mg Levothyroxine Sodium (Synthroid) 75 mcg PO DAILY@0630 [facility] Last Admin: 01/12/17 06:16 Dose: 75 mcg Losartan Potassium (Cozaar) 50 mg PO DAILY [facility] Last Admin: 01/11/17 08:39 Dose: 50 mg - Labs Labs: 01/12/17 06:30 PT 10.9 Seconds (9.8-13.1) 01/09/17 09:17 INR 1.0 (0.9-1.2) 01/09/17 09:17 APTT 29.1 Seconds (25.6-37.1) 01/09/17 09:17 - Constitutional Appears: No Acute Distress - Head Exam Head Exam: NORMAL INSPECTION, NORMOCEPHALIC - Eye Exam Eye Exam: Normal appearance - Neck Exam Neck Exam: absent: Thyromegaly Additional comments: right neck : [address] palpable, firm, nontender. - Respiratory Exam Respiratory Exam: Rales (right lower base), NORMAL BREATHING PATTERN - Cardiovascular Exam Cardiovascular Exam: REGULAR RHYTHM, +S1, +S2 - GI/Abdominal Exam GI & Abdominal Exam: Soft, Normal Bowel Sounds. absent: Tenderness - Extremities Exam Extremities Exam: absent: Pedal Edema, Tenderness - Neurological Exam Neurological Exam: Alert, Awake, CN II-XII Intact - Psychiatric Exam Psychiatric exam: Normal Affect, Normal Mood - Skin Skin Exam: Dry, Intact, Normal Color Assessment and Plan (1) Exertional dyspnea Assessment & Plan: 81 year old female with HTN and uncontrolled Hypothyroidism presented with worsening exertional dyspnea with 2:1 AV block, bradycardia. Patient is for pacemaker placement on saturday at 7:45 Exertional dyspnea: -vehicle monitor technician reviewed. chronic, secondary to 2:1 AV block with bradycardia, currently asymptomatic -echo done: EF: 30-35%, global hypokinesis, systolic function moderately impaired -Dr. Castrejon (cardiology): pacemaker recommended, scheduled for saturday AM -monitor vital signs Status: Acute (2) HTN (hypertension) Assessment & Plan: -controlled on Losartan 50mg PO daily -continue present management. Status: Chronic (3) Hypothyroidism Assessment & Plan: -uncontrolled, TSH: 12.7, continue with Levothyroxine 75mcg -Dr. Gomes is on consult - follow up TSH in 5 weeks as outpatient. Status: Chronic (4) Anemia Assessment & Plan: stable -chronic, normocytic -will monitor. Status: Chronic (5) DVT prophylaxis Assessment & Plan: plt count stable: 122 -will continue with Lovenox 40mg SC -Hold saturday for procedure Status: Acute (6) Cervical lymphadenopathy Assessment & Plan: -chronic cervical LAD -given ct findings, patient likely requires biopsy which can be done on an outpatient basis. -Will discuss with family tomorrow as they were not present during rounds today. Status: Chronic (7) Hyperlipidemia Assessment & Plan: follow up as outpatient Status: Chronic (8) Abnormal CXR (chest x-ray) Assessment & Plan: ct chest reviewed: -no intervention at this time, monitor clinically Status: Acute
[2017-01-12] MEDS: Amoxicillin-Clav 875-125 mg Tab PO SCH ×2 (08:52→20:14)
[2017-01-12] MEDS: Enoxaparin 40 mg Syringe SC SCH (08:53)
[2017-01-13] MEDS: Levothyroxine 75 MCG TAB PO SCH (05:50)
[2017-01-13] MEDS: Enoxaparin 40 mg Syringe SC SCH (08:47)
[2017-01-13 08:50] LABS: HEMATOCRIT 29.3 % (34.0-47.0); MEAN CELL VOLUME 91.3 fl (81.0-99.0); MEAN CORPUSCULAR HEMOGLOBIN 30.9 pg (27.0-31.0); MEAN CORPUSCULAR HGB CONC 33.8 g/dL (33.0-37.0); RED CELL DISTRIBUTION WIDTH 13.2 % (11.5-14.5); WHITE BLOOD COUNT 5.8 K/uL (4.8-10.8)
[2017-01-13 09:07] LABS: CALCIUM 8.9 mg/dL (8.4-10.2); POTASSIUM 4.5 MMOL/L (3.6-5.0)
--- NOTE | 2017-01-13 09:14 | CP.PCM.PN ---
Subjective - Date & Time of Evaluation Date of Evaluation: 01/13/17 Time of Evaluation: 09:14 - Subjective Subjective: Patient was seen and examined at bedside this morning. Patient was walking around in the room. Patient appears good spirit. Patient is aware of pacemaker placement tomorrow morning. Patient denies fever, chills, SOB, N/N/D, dizziness and headache. Hold Lovenox for pacemaker. Objective - Vital Signs/Intake and Output Vital Signs (last 24 hours): Temp Pulse Resp BP Pulse Ox 98.5 F 36 L 20 128/49 L 94 L 01/13/17 08:11 01/13/17 08:47 01/13/17 08:11 01/13/17 08:47 01/13/17 08:11 - Medications Medications: Current Medications Enoxaparin Sodium (Lovenox) 40 mg SC DAILY [facility] PRN Reason: Protocol Stop: 01/14/17 00:01 Last Admin: 01/13/17 08:47 Dose: Not Given Levothyroxine Sodium (Synthroid) 75 mcg PO DAILY@0630 [facility] Last Admin: 01/13/17 05:50 Dose: 75 mcg Losartan Potassium (Cozaar) 50 mg PO DAILY [facility] Last Admin: 01/13/17 08:47 Dose: 50 mg - Labs Labs: 01/13/17 06:30 PT 10.9 Seconds (9.8-13.1) 01/09/17 09:17 INR 1.0 (0.9-1.2) 01/09/17 09:17 APTT 29.1 Seconds (25.6-37.1) 01/09/17 09:17 - Constitutional Appears: Non-toxic, No Acute Distress - Head Exam Head Exam: ATRAUMATIC, NORMAL INSPECTION - Eye Exam Eye Exam: EOMI, Normal appearance, PERRL Pupil Exam: NORMAL ACCOMODATION, PERRL - ENT Exam ENT Exam: Mucous Membranes Moist, Normal Exam - Neck Exam Neck Exam: Full ROM, Lymphadenopathy (2 cervical lymph node palpable, firm, nontender on right side of neck), Normal Inspection - Respiratory Exam Respiratory Exam: Clear to Ausculation Bilateral, NORMAL BREATHING PATTERN - Cardiovascular Exam Cardiovascular Exam: REGULAR RHYTHM, RRR, +S1, +S2 - GI/Abdominal Exam GI & Abdominal Exam: Soft, Normal Bowel Sounds - Extremities Exam Extremities Exam: Full ROM, Normal Capillary Refill, Normal Inspection - Neurological Exam Neurological Exam: Alert, Awake, CN II-XII Intact, Normal Gait, Oriented x3 - Psychiatric Exam Psychiatric exam: Normal Affect, Normal Mood - Skin Skin Exam: Dry, Intact, Normal Color, Warm Assessment and Plan (1) Bradycardia on ECG Assessment & Plan: 81 year old female with HTN and uncontrolled Hypothyroidism presented with worsening exertional dyspnea with 2:1 AV block, bradycardia. Plan for pacemaker placement on Saturday at 7:45 -currently asymptomatic -chronic, secondary to 2:1 AV block with bradycardia, -echo done: EF: 30-35%, global hypokinesis, systolic function moderately impaired -Dr. Castrejon (cardiology): pacemaker recommended, scheduled for Saturday AM -monitor vital signs Status: Acute (2) Exertional dyspnea Assessment & Plan: -asymptomatic -etiology secondary to 2:1 AV block with bradycardia -echo done: EF: 30-35%, global hypokinesis, systolic function moderately impaired -monitor vitals Status: Acute (3) Cervical lymphadenopathy Assessment & Plan: -chronic cervical LAD -given CT findings, patient likely requires biopsy which can be done on an outpatient basis. Status: Chronic (4) Hypothyroidism Assessment & Plan: -uncontrolled, TSH: 12.7 -continue with Levothyroxine 75mcg - follow up TSH in 5 weeks as outpatient. Status: Chronic (5) HTN (hypertension) Assessment & Plan: -controlled on Losartan 50mg PO daily -continue current management. -monitor vitals Status: Chronic (6) Hyperlipidemia Assessment & Plan: -continue with current management Status: Chronic (7) DVT prophylaxis Assessment & Plan: -continue with Lovenox 40mg SC -Hold Saturday for procedure Status: Acute
--- NOTE | 2017-01-13 10:00 | CP.PCM.PN ---
Subjective - Date & Time of Evaluation Date of Evaluation: 01/13/17 Time of Evaluation: 09:40 - Subjective Subjective: Quite asymptomatic Telemetry continues to show sinus rhythm with periods of 2:1 A:V conduction BP 126/70 mm Hg No signs of CHF Scheduled to have a pacemaker insertion tomorrow. Objective - Vital Signs/Intake and Output Vital Signs (last 24 hours): Temp Pulse Resp BP Pulse Ox 98.5 F 36 L 20 128/49 L 94 L 01/13/17 08:11 01/13/17 08:47 01/13/17 08:11 01/13/17 08:47 01/13/17 08:11 - Medications Medications: Current Medications Enoxaparin Sodium (Lovenox) 40 mg SC DAILY [facility] PRN Reason: Protocol Stop: 01/14/17 00:01 Last Admin: 01/13/17 08:47 Dose: Not Given Levothyroxine Sodium (Synthroid) 75 mcg PO DAILY@0630 [facility] Last Admin: 01/13/17 05:50 Dose: 75 mcg Losartan Potassium (Cozaar) 50 mg PO DAILY [facility] Last Admin: 01/13/17 08:47 Dose: 50 mg - Labs Labs: 01/13/17 06:30 01/13/17 06:30 PT 10.9 Seconds (9.8-13.1) 01/09/17 09:17 INR 1.0 (0.9-1.2) 01/09/17 09:17 APTT 29.1 Seconds (25.6-37.1) 01/09/17 09:17
[2017-01-14] MEDS: Levothyroxine 75 MCG TAB PO SCH (06:37)
--- NOTE | 2017-01-14 06:38 | CP.PCM.PN ---
Subjective - Date & Time of Evaluation Date of Evaluation: 01/14/17 Time of Evaluation: 07:30 - Subjective Subjective: 07:30 Patient in OR for pacemaker placement. Objective - Vital Signs/Intake and Output Vital Signs (last 24 hours): Temp Pulse Resp BP Pulse Ox 98.1 F 38 L 18 141/49 L 97 01/14/17 05:05 01/14/17 05:05 01/14/17 05:05 01/14/17 05:05 01/14/17 05:05 Intake and Output: 01/13/17 01/14/17 18:59 06:59 Intake Total 500 Balance 500 - Medications Medications: Current Medications Levothyroxine Sodium (Synthroid) 75 mcg PO DAILY@0630 [facility] Last Admin: 01/13/17 05:50 Dose: 75 mcg Losartan Potassium (Cozaar) 50 mg PO DAILY [facility] Last Admin: 01/13/17 08:47 Dose: 50 mg - Labs Labs: 01/13/17 06:30 01/13/17 06:30 PT 10.9 Seconds (9.8-13.1) 01/09/17 09:17 INR 1.0 (0.9-1.2) 01/09/17 09:17 APTT 29.1 Seconds (25.6-37.1) 01/09/17 09:17 Assessment and Plan (1) Exertional dyspnea Assessment & Plan: 81 year old female with HTN and uncontrolled Hypothyroidism presented with worsening exertional dyspnea with 2:1 AV block, bradycardia. Plan for pacemaker placement this AM. Bradycardia with 2:1 AV block, with associated exertional dyspnea -pacemaker today with Dr. Barnes and Dr. Teddy Almonte -echo done: EF: 30-35%, global hypokinesis, systolic function moderately impaired -follow up post op Status: Acute (2) HTN (hypertension) Assessment & Plan: -controlled on Losartan 50mg PO daily -reassess s/p pacemaker placement. Possibly will need to adjust dose after patient is paced. -monitor vitals Status: Chronic (3) Hypothyroidism Assessment & Plan: -uncontrolled, TSH: 12.7 -continue with Levothyroxine 75mcg - follow up TSH as outpatient. - Dr. Gomes on consult Status: Chronic (4) Anemia Assessment & Plan: chronic -stable Hc: 10.5 -monitor post op Status: Chronic (5) DVT prophylaxis Assessment & Plan: -lovenox held today for procedure. -scds for now Status: Acute (6) Cervical lymphadenopathy Assessment & Plan: -will refer to general surgery as outpatient for possible biopsy Status: Chronic (7) Hyperlipidemia Assessment & Plan: -chronic, follow up as outpatient Status: Chronic (8) Abnormal CXR (chest x-ray) Assessment & Plan: -chest ct reviewed -follow u TIMA and CAR levels Status: Acute
[2017-01-14] MEDS ORDERED: Rocuronium 10 mg/ml (5 ml) ONE (06:58)
[2017-01-14] MEDS ORDERED: Propofol 10 mg/ml Inj (20 ML) ONE (06:58)
[2017-01-14] MEDS ORDERED: Etomidate 20 mg/10ml Inj IV ONE (06:59)
[2017-01-14] MEDS ORDERED: Succinylcholine 200 mg/10 ml Inj IV ONE (06:59)
[2017-01-14] MEDS ORDERED: Phenylephrine 10 mg/ml Inj ONE (07:05)
[2017-01-14] MEDS ORDERED: ePHEDrine 50 mg/ml Inj ONE (07:07)
[2017-01-14] MEDS ORDERED: Lidocaine 1% Inj (20ml) ONE ×2 (07:18→08:33)
[2017-01-14] MEDS ORDERED: Bupivacaine 0.5% Inj(30mL) ONE (07:18)
[2017-01-14 07:36] LABS: HEMATOCRIT 31.5 % (34.0-47.0); MEAN CELL VOLUME 91.4 fl (81.0-99.0); MEAN CORPUSCULAR HEMOGLOBIN 30.5 pg (27.0-31.0); MEAN CORPUSCULAR HGB CONC 33.3 g/dL (33.0-37.0); RED CELL DISTRIBUTION WIDTH 13.3 % (11.5-14.5); WHITE BLOOD COUNT 6.9 K/uL (4.8-10.8)
[2017-01-14 07:40] LABS: BLOOD UREA NITROGEN 17 mg/dl (7-17); CALCIUM 9.3 mg/dL (8.4-10.2); CARBON DIOXIDE 27 mmol/L (22-30); CHLORIDE 106 mmol/L (98-107); GFR AFRICAN-AMERICAN > 60; GLUCOSE,RANDOM 92 mg/dL (65-105); POTASSIUM 4.8 MMOL/L (3.6-5.0); SODIUM 141 mmol/l (132-148)
[2017-01-14] MEDS ORDERED: Midazolam 2 MG/2 ML VIAL ONE ×3 (07:42→09:14)
[2017-01-14] MEDS ORDERED: Lactated Ringer's 500 ML IV ONE (08:15)
[2017-01-14] MEDS ORDERED: Sodium Chloride 0.9% 500 ML IV ONE (08:15)
--- NOTE | 2017-01-14 10:16 | CP.PCM.PN ---
Subjective - Date & Time of Evaluation Date of Evaluation: 01/14/17 Time of Evaluation: 10:00 - Subjective Subjective: Through a Lt subclavian puncture (after Xylocain local anesthesia) a RV pacing lead was advanced into RV out flow tract under fluoroscopic guidance and pulled back into RV. A suitable spot was located by checking pacing and sensing measurements. The lead was screwed into place. Over a guide wire which was left in place, a Rt atrial pacing lead was advanced into RA and positioned with a J-stylet. Pacing and sensing measurements were satisfactory and the lead was screwed into place The leads were connected to a MedtronicoctoScope DDD pacemaker which was placed in pocket in Lt infraclavicular area. The patient tolerated the procedure well and was returned to PCU. Objective - Vital Signs/Intake and Output Vital Signs (last 24 hours): Temp Pulse Resp BP Pulse Ox 98.1 F 38 L 18 141/49 L 97 01/14/17 05:05 01/14/17 05:05 01/14/17 05:05 01/14/17 05:05 01/14/17 05:05 Intake and Output: 01/14/17 01/14/17 06:59 18:59 Intake Total 100 Balance 100 - Medications Medications: Current Medications Levothyroxine Sodium (Synthroid) 75 mcg PO DAILY@0630 [facility] Last Admin: 01/14/17 06:37 Dose: 75 mcg Losartan Potassium (Cozaar) 50 mg PO DAILY [facility] Last Admin: 01/14/17 08:23 Dose: Not Given - Labs Labs: 01/14/17 06:45 01/14/17 06:45 PT 10.4 Seconds (9.8-13.1) 01/14/17 06:45 INR 0.9 (0.9-1.2) 01/14/17 06:45 APTT 29.1 Seconds (25.6-37.1) 01/09/17 09:17
--- NOTE | 2017-01-14 12:16 | RAD ---
PROCEDURE: CHEST RADIOGRAPH, 1 VIEW HISTORY: s/p pacemaker placement COMPARISON: Comparison is made to the previous study dated 01/09/2017 FINDINGS: LUNGS: No significant interval change in the lungs noted since the previous exam. PLEURA: No pneumothorax or pleural fluid seen. CARDIOVASCULAR: Normal. OSSEOUS STRUCTURES: No significant abnormalities. VISUALIZED UPPER ABDOMEN: Normal. OTHER FINDINGS: Interval insertion of left sided pacemaker since the previous study. IMPRESSION: No active disease.
--- NOTE | 2017-01-14 13:47 | CARD ---
APPROVED REPORT EKG Measurement Heart [id number] <Conclusion> Atrial-sensed ventricular-paced rhythm Abnormal ECG
[2017-01-14] MEDS ORDERED: Oxycodone/Acetaminophen 5/325 mg Tab PO PRN (14:29)
--- NOTE | 2017-01-14 16:32 | OP ---
PROCEDURE DATE: 01/14/2017 PREOPERATIVE DIAGNOSIS: Heart block. POSTOPERATIVE DIAGNOSIS: Heart block. PROCEDURE: Placement of dual chamber pacemaker under fluoroscopic guidance. SURGEON: Sharif Murray MD SECOND SURGEON: Gage ANESTHESIA: Local with sedation. INTRAVENOUS FLUIDS: Crystalloids. ESTIMATED BLOOD LOSS: 2 mL. INTRAOPERATIVE FINDINGS: Satisfactory positioning of the leads. SPECIMEN: None. BRIEF HISTORY: The patient is a very pleasant 81-year-old female with heart block in need of the pac emaker placement. All the risks and benefits of the procedure were explained to the patient and with the patient having a full understanding of all the risks and benefits involved, informed consent was obtained and patient was taken to the operating room for above stated procedure. DESCRIPTION OF PROCEDURE: The patient was brought into the operating room and placed supine on the o perating table. Bilateral Flowtron boots were applied to patient's lower extremities. After success ful sedation by the anesthesia team, the patient's upper chest was prepped with ChloraPrep stick and draped in the standard surgical fashion. Prior to the beginning of the procedure, the patient receiv ed prophylactic Ancef antibiotic. Timeout was called in the room and everyone in the room were in ag reement. Using 1% lidocaine anesthetic, the area below the clavicle on the left side was infiltrated with lidocaine anesthetic and subsequent to that, using a 15 blade scalpel knife, approximately a 3 cm incision was made in a transverse fashion and subsequent to that, dissection was carried down with electrical cautery until pectoral fascia was encountered. Once the pectoral fascia was encountered, using blunt dissection with the finger, pocket was created inferiorly to the clavicle and at that po int in time, a needle attached to the syringe was introduced into the left subclavian vein and the ve in was cannulated. At that point in time, guidewire was introduced through the needle and subsequent to that, fluoroscopy C-arm was asked to come into the field and fluoro spot was taken. The guidewir e appeared to go into the heart, into the superior vena cava. At that point in time, introducer vicky sarabia was introduced over the guidewire and once this was accomplished, Dr. Almonte took over the case and his part of the case will be dictated separately. Once Dr. Almonte finished with the placement of the leads, the leads were secured to the pectoral fascia with interrupted 2-0 silk sutures and once that was accomplished, the wires were attached to the battery and screwed in place. At that point in derik e, the battery was placed inside of the pocket and the deep dermal layer was closed with running 3-0 Vicryl suture and subsequent to that, skin was closed with 4-0 Monocryl suture in a running subcuticu lar fashion. At the end of the procedure, incision site was washed and dried and a Dermabond was dayne lied to the incision site. Sharif Murray MD cc: [id number] TT: 01/14/2017 16:31:24 en
[2017-01-15] MEDS: Levothyroxine 75 MCG TAB PO SCH (08:58)
[2017-01-15] MEDS ORDERED: Pantoprazole 40 mg EC Tab PO SCH (09:00)
[2017-01-15] MEDS ORDERED: Enoxaparin 40 mg Syringe SC SCH (09:00)
--- NOTE | 2017-01-15 09:06 | CP.PCM.DIS ---
Provider - Provider Date of Admission: 01/10/17 13:16 Attending physician: Devorah Ellsworth MD Time Spent in preparation of Discharge (in minutes): 30 Diagnosis - Discharge Diagnosis (1) Exertional dyspnea Status: Acute (2) HTN (hypertension) Status: Resolved (3) Hypothyroidism Status: Chronic (4) Anemia Status: Chronic (5) DVT prophylaxis Status: Acute (6) Cervical lymphadenopathy Status: Chronic (7) Hyperlipidemia Status: Chronic (8) Abnormal CXR (chest x-ray) Status: Resolved Hospital Course - Lab Results Lab Results: Most Recent Lab Values WBC 6.9 K/uL (4.8-10.8) 01/14/17 06:45 RBC 3.44 Mil/uL (3.80-5.20) L 01/14/17 06:45 Hgb 10.5 g/dL (12.0-16.0) L 01/14/17 06:45 Hct 31.5 % (34.0-47.0) L 01/14/17 06:45 MCV 91.4 fl (81.0-99.0) 01/14/17 06:45 MCH 30.5 pg (27.0-31.0) 01/14/17 06:45 MCHC 33.3 g/dL (33.0-37.0) 01/14/17 06:45 RDW 13.3 % (11.5-14.5) 01/14/17 06:45 Plt Count 127 K/uL (130-400) L 01/14/17 06:45 MPV 10.7 fl (7.2-11.7) 01/11/17 11:48 Neut % (Auto) 50.1 % (50.0-75.0) 01/11/17 11:48 Lymph % (Auto) 35.1 % (20.0-40.0) 01/11/17 11:48 Gregory % (Auto) 9.8 % (0.0-10.0) 01/11/17 11:48 Eos % (Auto) 4.6 % (0.0-4.0) H 01/11/17 11:48 Baso % (Auto) 0.4 % (0.0-2.0) 01/11/17 11:48 Neut # 2.7 K/uL (1.8-7.0) 01/11/17 11:48 Lymph # 1.9 K/uL (1.0-4.3) 01/11/17 11:48 Gregory # 0.5 K/uL (0.0-0.8) 01/11/17 11:48 Eos # 0.2 K/uL (0.0-0.7) 01/11/17 11:48 Baso # 0.0 K/uL (0.0-0.2) 01/11/17 11:48 PT 10.4 Seconds (9.8-13.1) 01/14/17 06:45 INR 0.9 (0.9-1.2) 01/14/17 06:45 APTT 29.1 Seconds (25.6-37.1) 01/09/17 09:17 D-Dimer, Quantitative 0.82 mg/L FEU (0-0.50) H 01/10/17 05:10 Sodium 141 mmol/l (132-148) 01/14/17 06:45 Potassium 4.8 MMOL/L (3.6-5.0) 01/14/17 06:45 Chloride 106 mmol/L (98-107) 01/14/17 06:45 Carbon Dioxide 27 mmol/L (22-30) 01/14/17 06:45 Anion Gap 13 (10-20) 01/14/17 06:45 BUN 17 mg/dl (7-17) 01/14/17 06:45 Creatinine 1.0 mg/dL (0.7-1.2) 01/14/17 06:45 Est GFR ( Amer) > 60 01/14/17 06:45 Est GFR (Non-Af Amer) 53 01/14/17 06:45 Random Glucose 92 mg/dL (65-105) 01/14/17 06:45 Calcium 9.3 mg/dL (8.4-10.2) 01/14/17 06:45 Total Bilirubin 0.8 mg/dl (0.2-1.3) 01/09/17 09:17 AST 37 U/L (14-36) H 01/09/17 09:17 ALT 38 U/L (9-52) 01/09/17 09:17 Alkaline Phosphatase 102 U/L (38-126) 01/09/17 09:17 CK-MB (Mass) < 0.22 ng/mL (0.0-3.38) 01/10/17 04:00 Troponin I < 0.0120 ng/mL (0.00-0.120) 01/10/17 04:00 NT-Pro-B Natriuret Pep 290 pg/ml (0-900) 01/09/17 09:17 Total Protein 7.8 G/DL (6.3-8.2) 01/09/17 09: Albumin 4.2 g/dL (3.5-5.0) 01/09/17 09: Globulin 3.6 gm/dL (2.2-3.9) 01/09/17 09: Albumin/Globulin Ratio 1.2 (1.0-2.1) 01/09/17 09:17 Thyroxine (T4) 7.18 ug/dl (5.5-11.0) 01/10/17 04:00 TSH 3rd Generation 12.70 mIU/ML (0.46-4.68) H 01/10/17 04:00 Urine Color Yellow (YELLOW) 01/10/17 04:00 Urine Clarity Clear (Clear) 01/10/17 04:00 Urine pH 6.0 (5.0-8.0) 01/10/17 04:00 Ur Specific Dorena 1.012 (1.003-1.030) 01/10/17 04:00 Urine Protein Negative mg/dL (NEGATIVE) 01/10/17 04:00 Urine Glucose (UA) Neg mg/dL (Normal) 01/10/17 04:00 Urine Ketones Negative mg/dL (NEGATIVE) 01/10/17 04:00 Urine Blood Negative (NEGATIVE) 01/10/17 04:00 Urine Nitrate Negative (NEGATIVE) 01/10/17 04:00 Urine Bilirubin Negative (NEGATIVE) 01/10/17 04:00 Urine Urobilinogen 0.2-1.0 mg/dL (0.2-1.0) 01/10/17 04:00 Ur Leukocyte Esterase Neg Partha/uL (Negative) 01/10/17 04:00 Urine RBC (Auto) 1 /hpf (0-3) 01/10/17 04:00 Urine Microscopic WBC 1 /hpf (0-5) 01/10/17 04:00 Ur Squamous Epith Cells < 1 /hpf (0-5) 01/10/17 04:00 Hepatitis A IgM Ab Negative (NEGATIVE) 01/11/17 05:00 Hep Bs Antigen Negative (NEGATIVE) 01/11/17 05:00 Hep B Core IgM Ab Negative (NEGATIVE) 01/11/17 05:00 Hepatitis C Antibody Negative (NEGATIVE) 01/11/17 05:00 HIV 1&2 Antibody Screen Negative (NEGATIVE) 01/11/17 05:00 - Hospital Course Hospital Course: 81 year old female with hx of htn, hypothyroidism, HLD, chronic cervical LAD presented with acute worsening exertional dyspnea, with associated dizziness and fatigue admitted for same. Found to have 2:1 AV block with bradycardia, EF: 30-35% and uncontrolled hypothyroidism. Patient was seen by cardiology (Dr. Teddy Almonte), recommended pacemaker placement. Post operative day #1 today, patient tolerated procedure well and has appropriate tenderness at incision site. Also seen be endocrinology (Dr. Gomes), patient continued on Levothryoxine 75mcg. Patient complaining of incisional pain but overall feels well, ambulating to bathroom without difficulty. No chest pain or dyspnea at present. Tolerating regular diet. Patient is stable for discharge. D/w patient that BP has been controlled since procedure, likely that medication can be discontinued , follow up as outpatient with Dr. Aden on 01/17/17 at 9:20 AM Patient has cervical LAD: referral to general surgery clinic for possible LN biopsy. appt on : February, at 9:45. 01/15/17 EKG: AV dual paced rhythym, HR 61 Echo: EF 30-35%, global hypokinesis of left ventricle, systolic function moderately impaired CT neck/chest: There is an enhancing node in the posterior neck on the right measuring 10 x 13 mm. This can be seen previously. Enhancing nodes are also seen along the posterior border of the right sternocleidomastoid muscle. There is also some infiltration of the adjacent soft tissues. The largest node this region measures 15 mm. Findings are seen on images 33 through 42. Lymph nodes were seen in this area previously but the soft tissue infiltration was not present. LUNGS: Ground-glass interstitial densities are seen MEDIASTINUM:There is mural thrombus in the aortic arch Normal sized heart. Pulmonary arterial truck unremarkable. No vascular congestion. No lymphadenopathy. IMPRESSION: Adenopathy in the right posterior neck adjacent to the sternocleidomastoid muscle. There is infiltration of the adjacent fat planes. Findings are suspicious for malignant adenopathy versus infected lymph nodes Medications: resume losartan 25mg PO daily, levothyroxine 75 mcg Discharge medications: percocet 5/235mg PO q6 PRN pain, dispense 10 tabs - Date & Time of H&P Date of H&P: 01/09/17 Time of H&P: 12:48 Discharge Exam - Head Exam Head Exam: ATRAUMATIC, NORMAL INSPECTION - Eye Exam Eye Exam: Normal appearance Pupil Exam: NORMAL ACCOMODATION - Respiratory Exam Respiratory Exam: NORMAL BREATHING PATTERN - Cardiovascular Exam Cardiovascular Exam: REGULAR RHYTHM, +S1, +S2, Systolic Murmur Additional comments: paced rhythym 66 bpm - GI/Abdominal Exam GI & Abdominal Exam: Normal Bowel Sounds, Soft, Unremarkable. absent: Tenderness - Extremities Exam Additional comments: no pedal edema or tenderness - Neurological Exam Neurological exam: Alert, CN II-XII Intact, Oriented x3 - Psychiatric Exam Psychiatric exam: Normal Affect, Normal Mood - Skin Skin Exam: Dry, Intact Additional comments: incision over left anterior chest: dermabond covering incision, clean and dry Discharge Plan - Discharge Medications Prescriptions: oxyCODONE/Acetaminophen [Percocet 5/325 mg Tab] 1 tab PO Q6 PRN #10 tab PRN Reason: Pain, Severe (8-10) - Follow Up Plan Condition: GOOD Disposition: HOME/ ROUTINE Patient education suggested?: Yes Instructions: Pacemaker (DC) Referrals: Charles Edmondson MD [Staff Provider] -
--- NOTE | 2017-01-15 09:26 | CP.PCM.PN ---
Subjective - Date & Time of Evaluation Date of Evaluation: 01/15/17 Time of Evaluation: 09:00 - Subjective Subjective: Reports hardly any surgical pain Surgical wound clean Telemetry shows steady DDD mode pacing (Mostly A sensed/ V-paced pattern) BP 126/70 mm Hg The pacer will be interrogated this AM A Booklet in English will be provided the pt may go home Objective - Vital Signs/Intake and Output Vital Signs (last 24 hours): Temp Pulse Resp BP Pulse Ox 97.9 F 60 19 132/70 97 01/15/17 05:00 01/15/17 05:00 01/15/17 05:00 01/15/17 08:55 01/15/17 05:00 Intake and Output: 01/15/17 01/15/17 06:59 18:59 Intake Total 300 Balance 300 - Medications Medications: Current Medications Enoxaparin Sodium (Lovenox) 40 mg SC DAILY [facility] PRN Reason: Protocol Ibuprofen (Motrin Tab) 600 mg PO Q6 PRN PRN Reason: Pain, moderate (4-7) Last Admin: 01/15/17 08:56 Dose: 600 mg Levothyroxine Sodium (Synthroid) 75 mcg PO DAILY@0630 [facility] Last Admin: 01/15/17 08:58 Dose: 75 mcg Losartan Potassium (Cozaar) 25 mg PO DAILY [facility] Metoclopramide HCl (Reglan) 10 mg IVP Q6 PRN PRN Reason: Nausea/Vomiting Oxycodone/Acetaminophen (Percocet 5/325 Mg Tab) 1 tab PO Q6 PRN PRN Reason: Pain, severe (8-10) Stop: 01/15/17 14:30 Pantoprazole Sodium (Protonix Ec Tab) 40 mg PO DAILY [facility] Last Admin: 01/15/17 08:56 Dose: 40 mg - Labs Labs: 01/14/17 06:45 01/14/17 06:45 PT 10.4 Seconds (9.8-13.1) 01/14/17 06:45 INR 0.9 (0.9-1.2) 01/14/17 06:45 APTT 29.1 Seconds (25.6-37.1) 01/09/17 09:17
--- NOTE | 2017-01-15 13:39 | CARD ---
APPROVED REPORT EKG Measurement Heart [id number] <Conclusion> AV dual-paced rhythm Abnormal ECG
[2017-01-15 16:04] VITALS: O2SAT 95
--- NOTE | 2017-01-15 17:26 | RAD ---
PROCEDURE: Fluoroscopy up to 1 hr. HISTORY: PACE MAKER COMPARISON: None TECHNIQUE: Standard protocol for this study/examination. FINDINGS: Total fluoroscopic time (continuous mode) utilized during the procedure: 1171.6 seconds IMPRESSION: Less than 1 hr fluoroscopic time utilized during performance of the procedure.
[2017-01-15 19:51] VITALS: BP 128/67; PULSE 20; RESP 68; TEMP 97.5
== END 2017-01-15 17:51 | disposition home or self-care (01) | DRG 244 ==
LOC: H.ER 08:42 → H.ERHOLD 11:17 → H.TEL 12:36 → OBSVTOIN 01-10 13:16
PROVIDERS: ADMIT Family Medicine Geriatric Medicine; ATTEND Family Medicine Geriatric Medicine
PROC: 02H63JZ Insertion of Pacemaker Lead into Right Atrium, Percutaneous Approach (ICD-10-PCS; 2017-01-14)
PROC: 02HK3JZ Insertion of Pacemaker Lead into Right Ventricle, Percutaneous Approach (ICD-10-PCS; 2017-01-14)
PROC: 0JH606Z Insertion of Pacemaker, Dual Chamber into Chest Subcutaneous Tissue and Fascia, Open Approach (ICD-10-PCS; principal; 2017-01-14 07:45)
DX: I44.0 Atrioventricular block, first degree (principal); D69.6 Thrombocytopenia, unspecified; J44.9 Chronic obstructive pulmonary disease, unspecified; D64.9 Anemia, unspecified; E03.9 Hypothyroidism, unspecified; E78.00 Pure hypercholesterolemia, unspecified; E78.5 Hyperlipidemia, unspecified; I10 Essential (primary) hypertension; I51.3 Intracardiac thrombosis, not elsewhere classified; I77.819 Aortic ectasia, unspecified site

== ENCOUNTER 2017-01-31 09:49 | Emergency (ER) | payer SELFPAY ==
[2017-01-31 09:51] VITALS: BMI 27.7
[2017-01-31 09:53] VITALS: BP 164/84; PULSE 75; RESP 18; TEMP 99.6; O2SAT 96
--- NOTE | 2017-01-31 10:38 | ED PDOC ---
HPI: General Adult Time Seen by Provider: 01/31/17 10:04 Chief Complaint (Nursing): Headache History Per: Patient, [employer] Analyst ([id number]) Additional Complaint(s): Pt. states for the past 2 days she's had bodyaches, fever, and headache. Reports that she has not taken any meds to help relieve symptoms. Further states that she has a scheduled biopsy appointment today at 1100 but would like to get checked out prior to getting her procedure done. Denies rash, neck stiffness, chest pain, abdominal pain, N/V/D, rash. Against Medical Advice - AMA Patient Left Against Medical Advice: The patient declines admission to the hospital and wishes to leave the Emergency Department. This action is against my medical advice. This decision was made with informed refusal. The patient was told that admission to the hospital is necessary. Explanation of the reasons why were discussed. The risks of leaving were explained to the patient and include, but are not limited to, worsening of known or currently unknown conditions, permanent disability and from undiagnosed or untreated conditions. The patient has the capacity to make this informed decision and understands my explanation of the current medical problem and risks of leaving. The patient voluntarily accepts these risks and signed an AMA form documenting our conversation. The patient was given the opportunity to ask questions and reconsider. The patient was encouraged to return to the Emergency Department at any time for further care. Past Medical History Reviewed: Historical Data, Nursing Documentation, Vital Signs Vital Signs: Last Vital Signs Temp 99.6 F 01/31/17 09:52 Pulse 75 01/31/17 09:52 Resp 18 01/31/17 09:52 BP 164/84 H 01/31/17 09:52 Pulse Ox 96 01/31/17 09:52 - Medical History PMH: HTN, Hypercholesterolemia, Hypothyroidism Denies: HIV - Surgical History Surgical History: Pacemaker - Family History Family History: States: No Known Family Hx - Home Medications Home Medications: Ambulatory Orders Medication Instructions Recorded Calcium Carbonate/Vitamin D3 1 tab PO DAILY 01/09/17 [Calcium 600 + Vit D Tablet] Losartan [Cozaar] 25 mg PO DAILY 01/09/17 Losartan [Cozaar] 25 mg PO DAILY tab 01/15/17 oxyCODONE/Acetaminophen [Percocet 1 tab PO Q6 PRN #10 tab 01/15/17 5/325 mg Tab] - Allergies Allergies/Adverse Reactions: Allergies Allergy/AdvReac Type Severity Reaction Status Date / Time No Known Allergies Allergy Verified 01/31/17 10:04 Review of Systems ROS Statement: Except As Marked, All Systems Reviewed And Found Negative Constitutional: Positive for: Fever, Malaise Physical Exam - Physical Exam Appears: Positive for: Well, Non-toxic, No Acute Distress Head Exam: Positive for: ATRAUMATIC, NORMAL INSPECTION, NORMOCEPHALIC Skin: Positive for: Normal Color, Warm. Negative for: Rash Eye Exam: Positive for: Normal appearance Neck: Positive for: Normal, Painless ROM Neurologic/Psych: Positive for: Alert, Oriented, Gait (steady and unassisted). Negative for: Aphasia, Facial Droop - ECG O2 Sat by Pulse Oximetry: 96 - Progress ED Course And Treament: Pt. informed that she will require labs in ED and she will likely miss her appointment. Pt. states that she would rather get her biopsy done first and she will return to ED if symptoms persist. Pt. was encouraged to stay for work up but she made decision to get biopsy done first along with her family. Instructed to return to ED immediately if symptoms persist or worsen. Disposition - Clinical Impression Clinical Impression: Myalgia, Left against medical advice - Patient ED Disposition Is Patient to be Admitted: No - Disposition Disposition: Against Medical Advice Disposition Time: 10:30 Condition: GUARDED Additional Instructions: RETURN TO ED IMMEDIATELY IF SYMPTOMS WORSEN OR PERSIST. Instructions: Against Medical Advice (ED) Print Language: KHMER
== END 2017-01-31 10:44 | disposition left against medical advice (07) ==
LOC: H.ER 09:49
DX: R51 Headache (principal); E03.9 Hypothyroidism, unspecified; E78.00 Pure hypercholesterolemia, unspecified; I10 Essential (primary) hypertension; Z95.0 Presence of cardiac pacemaker

== ENCOUNTER 2017-01-31 12:04 | Emergency (ER) | payer SELFPAY ==
[2017-01-31 12:06] VITALS: BMI 28.6
[2017-01-31 12:08] VITALS: PULSE 75; RESP 18; TEMP 98.3
[2017-01-31 12:09] VITALS: BP 154/72; O2SAT 98
[2017-01-31 12:44] LABS: VENOUS BLOOD GAS BASE EXCESS 3.2 mmol/L (0.0-2.0); VENOUS BLOOD GAS PCO2 49 mmHg (40-60); VENOUS BLOOD GAS PO2 19 mm/Hg (30-55); VENOUS BLOOD PH 7.38 (7.32-7.43)
[2017-01-31 13:14] LABS: BASO % 0.3 % (0.0-2.0); EOS # 0.4 K/uL (0.0-0.7); EOS % 5.7 % (0.0-4.0); HEMOGLOBIN 10.4 g/dL (12.0-16.0); LYMPH % 27.4 % (20.0-40.0); MEAN CELL VOLUME 92.1 fl (81.0-99.0); MEAN CORPUSCULAR HEMOGLOBIN 30.5 pg (27.0-31.0); MEAN CORPUSCULAR HGB CONC 33.1 g/dL (33.0-37.0); MEAN PLATELET VOLUME 9.9 fl (7.2-11.7); MONO # 0.5 K/uL (0.0-0.8); MONO % 6.7 % (0.0-10.0); NEUT # 4.5 K/uL (1.8-7.0); NEUT % 59.9 % (50.0-75.0); RBC 3.42 Mil/uL (3.80-5.20); RED CELL DISTRIBUTION WIDTH 13.6 % (11.5-14.5); WHITE BLOOD COUNT 7.5 K/uL (4.8-10.8)
--- NOTE | 2017-01-31 13:19 | RAD ---
HISTORY: Fever COMPARISON: 01/31/2017. TECHNIQUE: Chest PA and lateral FINDINGS: LUNGS: There is mild pulmonary hyperinflation and peribronchial thickening with chronic changes in both lungs. No focal consolidation. PLEURA: No significant pleural effusion identified. No pneumothorax apparent. CARDIOVASCULAR: The heart is normal in size. Stable position of a left-sided dual lead transvenous permanent pacing device OSSEOUS STRUCTURES: No significant abnormalities. VISUALIZED UPPER ABDOMEN: Normal. OTHER FINDINGS: None. IMPRESSION: No active pulmonary disease. COPD.
[2017-01-31 13:23] LABS: ALB/GLOB RATIO 1.2 (1.0-2.1); ALBUMIN 4.6 g/dL (3.5-5.0); ALT/SGPT 34 U/L (9-52); AST/SGOT 35 U/L (14-36); BLOOD UREA NITROGEN 15 mg/dl (7-17); CALCIUM 9.5 mg/dL (8.4-10.2); GFR AFRICAN-AMERICAN > 60; GFR NON-AFRICAN AMERICAN 53
--- NOTE | 2017-01-31 13:26 | ED PDOC ---
HPI: General Adult Time Seen by Provider: 01/31/17 12:23 Chief Complaint (Nursing): Flu-like Symptoms Chief Complaint (Provider): Fever, sore throat, nasal congestion History Per: Patient History/Exam Limitations: no limitations Onset/Duration Of Symptoms: Days (1) Have you had recent travel within the past 21 days to any of the following countries: [place], [place], [place] or [place]?: No Current Symptoms Are (Timing): Still Present Recently: Seen In ED Additional History Per: Patient Additional Complaint(s): Pt states yesterday she developed fever, sore throat and nasal congestion. Also has bodyaches and headache. States initially seen in ED earlier today decided to sign out AMA as she had to get a biopsy of lymph node on neck done. Checked temperature before procedure, which was 100.2 so she was informed to come to ED. She denies any rash, nausea, vomiting, diarrhea, neck pain, chest pain, shortness of breath. She denies taking any medication for her symptoms and offers no additional medical complaints. Past Medical History Reviewed: Historical Data, Nursing Documentation, Vital Signs Vital Signs: Last Vital Signs Temp 98.3 F 01/31/17 12:07 Pulse 75 01/31/17 12:07 Resp 18 01/31/17 12:07 BP 154/72 H 01/31/17 12:07 Pulse Ox 98 01/31/17 13:29 - Medical History PMH: HTN, Hypercholesterolemia, Hypothyroidism Denies: HIV - Surgical History Surgical History: Pacemaker - Family History Family History: States: Unknown Family Hx - Home Medications Home Medications: Ambulatory Orders Medication Instructions Recorded Calcium Carbonate/Vitamin D3 1 tab PO DAILY 01/09/17 [Calcium 600 + Vit D Tablet] Losartan [Cozaar] 25 mg PO DAILY 01/09/17 Losartan [Cozaar] 25 mg PO DAILY tab 01/15/17 oxyCODONE/Acetaminophen [Percocet 1 tab PO Q6 PRN #10 tab 01/15/17 5/325 mg Tab] - Allergies Allergies/Adverse Reactions: Allergies Allergy/AdvReac Type Severity Reaction Status Date / Time No Known Allergies Allergy Verified 01/31/17 12:21 Review of Systems ROS Statement: Except As Marked, All Systems Reviewed And Found Negative Constitutional: Positive for: Fever (100.2). Negative for: Chills ENT: Positive for: Nose Congestion, Throat Pain Gastrointestinal: Negative for: Nausea, Vomiting, Diarrhea Musculoskeletal: Negative for: Neck Pain Skin: Negative for: Rash Physical Exam - Reviewed Nursing Documentation Reviewed: Yes Vital Signs Reviewed: Yes - Physical Exam Appears: Positive for: Well, Non-toxic, No Acute Distress Head Exam: Positive for: ATRAUMATIC, NORMAL INSPECTION, NORMOCEPHALIC Skin: Positive for: Normal Color, Warm, DRY Eye Exam: Positive for: EOMI, Normal appearance, PERRL ENT: Positive for: Pharyngeal Erythema. Negative for: Tonsillar Swelling Neck: Positive for: Normal, Supple Cardiovascular/Chest: Positive for: Regular Rate, Rhythm, Other (healing sutured wound on left side of chest, no erythema or discharge noted.) Respiratory: Positive for: Normal Breath Sounds. Negative for: Respiratory Distress Gastrointestinal/Abdominal: Positive for: Normal Exam, Soft. Negative for: Tenderness Neurologic/Psych: Positive for: Alert, Oriented - Laboratory Results Result Diagrams: 01/31/17 12:30 01/31/17 12:30 - ECG O2 Sat by Pulse Oximetry: 98 (RA) Pulse Ox Interpretation: Normal - Radiology X-Ray: Read By Radiologist (CXR) X-Ray Interpretation: No Acute Disease Medical Decision Making Medical Decision Making: Time: 1230 Impression: URI Plan: -- CBC -- Blood culture -- Rapid Flu -- Rapid Strep -- Urinalysis -- Reassess Scribe Attestation: Documented by Luz Lewis acting as a scribe for Matt Lugo PA-C. Provider Attestation: All medical record entries made by the Scribe were at my direction and personally dictated by me. I have reviewed the chart and agree that the record accurately reflects my personal performance of the history, physical exam, medical decision making, and the department course for this patient. I have also personally directed, reviewed, and agree with the discharge instructions and disposition. Disposition - Clinical Impression Clinical Impression: Viral syndrome - Patient ED Disposition Is Patient to be Admitted: No - Disposition Disposition: Routine/Home Disposition Time: 14:54 Condition: STABLE Additional Instructions: Take Tylenol at home for fever. RETURN TO ED IMMEDIATELY IF SYMPTOMS PERSIST OR WORSEN. Instructions: Viral Syndrome (ED) Print Language: SCOTTISH
[2017-01-31 13:28] LABS: SQUAMOUS EPITHIAL 2 /hpf (0-5); URINE BILIRUBIN NEGATIVE (NEGATIVE); URINE BLOOD NEGATIVE (NEGATIVE); URINE CLARITY CLEAR (Clear); URINE COLOR YELLOW (YELLOW); URINE GLUCOSE (UA) NEG (Normal); URINE LEUKOCYTE ESTERASE NEG Leu/uL (Negative); URINE NITRATE NEGATIVE (NEGATIVE); URINE PROTEIN 100 mg/dL (NEGATIVE); URINE UROBILINOGEN 0.2-1.0 mg/dL (0.2-1.0)
== END 2017-01-31 15:09 | disposition home or self-care (01) ==
LOC: H.ER 12:04
DX: B34.9 Viral infection, unspecified (principal); J02.9 Acute pharyngitis, unspecified; E03.9 Hypothyroidism, unspecified; E78.00 Pure hypercholesterolemia, unspecified; I10 Essential (primary) hypertension; Z95.0 Presence of cardiac pacemaker

== ENCOUNTER 2017-02-04 08:55 | Day surgery (SDC) | payer SELFPAY ==
[2017-02-04 09:51] VITALS: BMI 27.7
[2017-02-04] MEDS ORDERED: Lidocaine 1% Inj (20ml) ONE (10:31)
--- NOTE | 2017-02-04 10:49 | CP.SDSHP ---
Same Day Surgery H & P - History Proposed Procedure: Right posterior neck lymph node biopsy Pre-Op Diagnosis: Enlarged right posterior neck lymph node. - Allergies Allergies: Allergies No Known Allergies Allergy (Verified 01/31/17 12:21) - Physical Exam Vital Signs: Vital Signs 02/04/17 09:40 Temperature 98.2 F Pulse Rate 61 Respiratory 18 Rate Blood Pressure 151/84 H O2 Sat by Pulse 95 Oximetry Short Stay Discharge - Short Stay Discharge Admitting Diagnosis/Reason for Visit: R59.0 Disposition: HOME/ ROUTINE Referrals: Jimena Aden MD [Primary Care Provider] -
--- NOTE | 2017-02-04 10:51 | PCM.SURG1 ---
Surgeon's Initial Post Op Note - Surgeon's Notes Surgeon: Marco Systems Development Manager: None Type of Anesthesia: Local Pre-Operative Diagnosis: Right posterior neck enlarged lymph node. Operative Findings: Right posterior neck enlarged lymph node. Post-Operative Diagnosis: Right posterior neck enlarged lymph node. Operation Performed: Right posterior neck enlarged lymph node FNA Specimen/Specimens Removed: FNA Samples obtained. Estimated Blood Loss: EBL {In ML}: 1 Date of Surgery/Procedure: 02/04/17 Time of Surgery/Procedure: 10:45
[2017-02-04 11:18] VITALS: RESP 18
[2017-02-04 12:02] VITALS: BP 146/72; PULSE 62; TEMP 97.6; O2SAT 98
--- NOTE | 2017-02-05 12:29 | US ---
Right posterior neck mass fine-needle aspiration biopsy History: Right posterior neck swelling. Procedure and findings: Using a load out supervisor, informed consent was obtained from the patient. Relative risks and benefits were also discussed. The patient was positioned supine with the neck extended. Usual sterile techniques were obtained to prepped and draped in the posterior neck. 1 percent lidocaine was used to anesthetize the skin and the subcutaneous soft tissues. Sterile ultrasound probe cover and gel was used. Initial ultrasound images demonstrated mildly enlarged lymph nodes in the posterior neck. An enlarged lymph node was identified for biopsy. Under direct ultrasound guidance, a 25 gauge needles were introduced into the enlarged lymph node and fine needle aspiration biopsies were obtained. The biopsy samples were then transferred to the pathologist. Post biopsy ultrasound demonstrated no evidence of hematoma. Impression: Successful ultrasound-guided fine-needle aspiration biopsy of an enlarged right posterior neck lymph node. Patient tolerated the procedure well without any adverse events.
== END 2017-02-04 12:15 | disposition home or self-care (01) ==
LOC: H.OPSURG 08:55
PROVIDERS: ATTEND Family Medicine
DX: R59.0 Localized enlarged lymph nodes (principal)

== ENCOUNTER 2017-03-14 13:50 | Emergency (ER) | payer OTHER ==
[2017-03-14 13:50] VITALS: BMI 27.7
[2017-03-14 13:55] VITALS: PULSE 86
--- NOTE | 2017-03-14 14:39 | ED PDOC ---
HPI: General Adult Chief Complaint (Provider): lightheadedness History Per: Patient History/Exam Limitations: no limitations Onset/Duration Of Symptoms: Days Have you had recent travel within the past 21 days to any of the following countries: [place], [place], [place] or [place]?: No Current Symptoms Are (Timing): Still Present Pain Scale Rating Of: 0 Recent Trauma: No Recently: Hospitalized (Pacemaker implantation in 01/2017) <Jamie Denton - Last Filed: 03/14/17 16:08> <Svitlana Youssef - Last Filed: 03/19/17 15:00> Time Seen by Provider: 03/14/17 14:03 Chief Complaint (Nursing): Dizziness/Lightheaded Additional Complaint(s): 81 y/o F with PMhx of HTN presents to ED c/o dizziness for the past week. Patient c/o intermittent episodes of lightheadedness worse in the afternoon, sometimes associated with frontal headaches. She associates this episodes with previous episodes of HBP in the past. At this time patient denies headaches, palpitations, SOB,changes in urination or stools, abd pain or unsteady gait. Denies syncope. Admits blurry vision. 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 (Jamie Denton) Supervising Attending Note - Supervising Attending Note The Documented history was done by the: Physician Waste Machine Tender, Attending Physician The documented physical exam was done by the: Physician Waste Machine Tender, Attending Physician The documented procedures were done by the: Physician Waste Machine Tender, Attending Physician - Attestation: I have personally seen and examined this patient.: Yes I have fully participated in the care of the patient.: Yes I have reviewed all pertinent clinical information, including history, physical exam and plan: Yes <Svitlana Youssef - Last Filed: 03/19/17 15:00> Past Medical History - Medical History PMH: HTN, Hypercholesterolemia, Hypothyroidism Denies: HIV - Surgical History Surgical History: Pacemaker - Family History Family History: States: Unknown Family Hx <Jamie Denton - Last Filed: 03/14/17 16:08> <Svitlana Youssef - Last Filed: 03/19/17 15:00> Vital Signs: Last Vital Signs Temp 98 F 03/14/17 16:17 Pulse 86 03/14/17 16:17 Resp 88 H 03/14/17 16:17 BP 141/97 H 03/14/17 16:17 Pulse Ox 99 03/14/17 16:17 - Home Medications Home Medications: Ambulatory Orders Medication Instructions Recorded Losartan [Cozaar] 25 mg PO DAILY tab 01/15/17 Levothyroxine Sodium [Levo-T] 88 mcg PO DAILY 02/04/17 - Allergies Allergies/Adverse Reactions: Allergies Allergy/AdvReac Type Severity Reaction Status Date / Time No Known Allergies Allergy Verified 01/31/17 12:21 Review of Systems ROS Statement: Except As Marked, All Systems Reviewed And Found Negative Constitutional: Positive for: Other (Lightheadedness) <Jamie Denton - Last Filed: 03/14/17 16:08> Physical Exam - Reviewed Nursing Documentation Reviewed: Yes Vital Signs Reviewed: Yes - Physical Exam Appears: Positive for: Non-toxic, No Acute Distress Head Exam: Positive for: ATRAUMATIC, NORMAL INSPECTION Skin: Positive for: Warm Neck: Positive for: Decreased ROM (Stiffness.) Cardiovascular/Chest: Negative for: Gallop, JVD Respiratory: Positive for: Normal Breath Sounds. Negative for: Crackles, Wheezing Gastrointestinal/Abdominal: Positive for: Normal Exam, Soft Extremity: Negative for: Tenderness, Pedal Edema, Swelling Neurologic/Psych: Positive for: Alert, compressor operator adjuster II-XII, Oriented. Negative for: Motor/Sensory Deficits, Aphasia, Facial Droop <Jamie Denton - Last Filed: 03/14/17 16:08> - Laboratory Results Result Diagrams: 03/14/17 14:55 03/14/17 14:55 - ECG O2 Sat by Pulse Oximetry: 96 <Jamie Denton - Last Filed: 03/14/17 16:08> - Laboratory Results Result Diagrams: 03/14/17 14:55 03/14/17 14:55 <Svitlana Youssef - Last Filed: 03/19/17 15:00> - Progress ED Course And Treament: Patient dizziness resolved. CBC + for anemia(chronic). EKG: pacemaker rhythm. No acute changes Patient will be DC home and F/U as outpatient with PMD in 2-3 days (Jamie Denton) Medical Decision Making <Jamie Denotn - Last Filed: 03/14/17 16:08> <Svitlana Youssef - Last Filed: 03/19/17 15:00> Medical Decision Makin81 y/o presented to ED C/O dizziness Lightheadedness Possible due to Anemia CBC: Anemia(Chronic,previous records reviewed) Patient needs anemia work up as outpatient (Jamie Denton) Disposition - Patient ED Disposition Is Patient to be Admitted: No Counseled Patient/Family Regarding: Studies Performed, Need For Followup - Disposition Disposition: Routine/Home Disposition Time: 16:05 <Jamie Denton - Last Filed: 03/14/17 16:08> <Svitlana Youssef - Last Filed: 03/19/17 15:00> - Clinical Impression Clinical Impression: Lightheaded - Disposition Condition: IMPROVED Additional Instructions: F/U with PMD in 2-3 days Return to ED if worsening of the symptoms, severe headache, numbness, tingling, weakness or any other concerns Instructions: Lightheadedness (ED) Forms: [employer] (Lithuanian) Print Language: BULGARIAN
[2017-03-14 15:02] LABS: MEAN CELL VOLUME 90.4 fl (81.0-99.0); MEAN CORPUSCULAR HEMOGLOBIN 29.9 pg (27.0-31.0); MEAN CORPUSCULAR HGB CONC 33.1 g/dL (33.0-37.0); RBC 3.35 Mil/uL (3.80-5.20); RED CELL DISTRIBUTION WIDTH 13.6 % (11.5-14.5); WHITE BLOOD COUNT 4.8 K/uL (4.8-10.8)
[2017-03-14 15:11] LABS: BLOOD UREA NITROGEN 15 mg/dl (7-17); CALCIUM 9.4 mg/dL (8.4-10.2); GFR AFRICAN-AMERICAN > 60; GFR NON-AFRICAN AMERICAN > 60
[2017-03-14 16:18] VITALS: BP 141/97; RESP 88; TEMP 98; O2SAT 99
--- NOTE | 2017-03-15 07:29 | CARD ---
APPROVED REPORT EKG Measurement Heart [id number] <Conclusion> AV dual-paced rhythm with prolonged AV conduction Abnormal ECG
== END 2017-03-14 16:18 | disposition home or self-care (01) ==
LOC: H.ER 13:50
DX: R42 Dizziness and giddiness (principal); I10 Essential (primary) hypertension; Z95.0 Presence of cardiac pacemaker

== ENCOUNTER 2018-02-04 14:48 | Emergency (ER) | payer SELFPAY ==
[2018-02-04 14:49] VITALS: BMI 27.7
--- NOTE | 2018-02-04 15:38 | ED PDOC ---
HPI: General Adult Time Seen by Provider: 02/04/18 15:02 Chief Complaint (Nursing): Weakness/Neurological Deficit Chief Complaint (Provider): Weakness History Per: Patient History/Exam Limitations: no limitations Onset/Duration Of Symptoms: Worse Since, Other (8 months) Current Symptoms Are (Timing): Still Present Additional Complaint(s): 82 year old female presents to the ED complaining of weakness onset for 8 months. States it is worse since onset. Reports last month, she had shortness of breath on excertion, leg cramping, pressure in chest intermittently and dizziness. Denies chills, fever, or infectious symptoms. PMD: [facility] in [place] Past Medical History Reviewed: Historical Data, Nursing Documentation, Vital Signs Vital Signs: Last Vital Signs Temp 98.3 F 02/04/18 14:51 Pulse 77 02/04/18 14:51 Resp 16 02/04/18 14:51 BP 146/64 02/04/18 16:12 Pulse Ox 99 02/04/18 16:57 - Medical History PMH: HTN, Hypercholesterolemia, Hypothyroidism Denies: HIV - Surgical History Surgical History: Pacemaker - Family History Family History: States: Unknown Family Hx, Hypertension - Social History Current smoker - smoking cessation education provided: No Alcohol: None Drugs: Denies - Home Medications Home Medications: Ambulatory Orders Medication Instructions Recorded Losartan [Cozaar] 25 mg PO DAILY tab 01/15/17 Levothyroxine Sodium [Levo-T] 88 mcg PO DAILY 02/04/17 - Allergies Allergies/Adverse Reactions: Allergies Allergy/AdvReac Type Severity Reaction Status Date / Time No Known Allergies Allergy Verified 02/04/18 14:51 Review of Systems ROS Statement: Except As Marked, All Systems Reviewed And Found Negative (As per HPI, otherwise negative) Constitutional: Positive for: Weakness. Negative for: Fever, Chills Physical Exam - Reviewed Nursing Documentation Reviewed: Yes Vital Signs Reviewed: Yes - Physical Exam Appears: Positive for: No Acute Distress (appears tired) Head Exam: Positive for: ATRAUMATIC, NORMOCEPHALIC Skin: Positive for: Warm, Dry Eye Exam: Positive for: EOMI, PERRL ENT: Negative for: Pharyngeal Erythema, Tonsillar Exudate Neck: Positive for: Painless ROM, Supple Cardiovascular/Chest: Positive for: Regular Rate, Rhythm, Chest Non Tender. Negative for: Murmur Respiratory: Positive for: Normal Breath Sounds. Negative for: Wheezing, Respiratory Distress Gastrointestinal/Abdominal: Positive for: Soft. Negative for: Tenderness Back: Positive for: Normal Inspection. Negative for: Decreased ROM Extremity: Positive for: Normal ROM. Negative for: Deformity Lymphatic: Negative for: Adenopathy Neurologic/Psych: Positive for: Alert. Negative for: Motor/Sensory Deficits - Laboratory Results Result Diagrams: 02/04/18 15:52 02/04/18 15:52 - ECG ECG: Positive for: Interpreted By Me ECG Rhythm: Positive for: Normal QRS, Normal ST Segment, Sinus Rhythm O2 Sat by Pulse Oximetry: 99 (RA) Pulse Ox Interpretation: Normal Medical Decision Making Medical Decision Making: Time: 1517 Initial Impression: weakness Differential Diagnosis includes but is not limited to: heat failure, anemia, thyroid dysfunction, electrolyte abnormalities, and UTI Initial Plan: --EKG --B-Type Natriuretic Peptide --CMP --Free T4 --Magnesium --Phosphorus --T3 --Thyroid Stimulating Hormone --Troponin I --ED Urine dipstick --CBC w/ Differential --PTT --Prothrombin Time --Chest Two Views (PA/LAT) [RAD] --IV Insertion --Reevaluation Time: 1556 HISTORY: weakness COMPARISON: Chest radiographs 01/31/2017. TECHNIQUE: Chest PA and lateral FINDINGS: LUNGS: No active pulmonary disease. PLEURA: No significant pleural effusion identified. No pneumothorax apparent. CARDIOVASCULAR: Cardiac size is stable. No pulmonary vascular congestion. Bipolar permanent cardiac pacemaker reiterated. OSSEOUS STRUCTURES: No significant abnormalities. VISUALIZED UPPER ABDOMEN: Nonspecific bio oval radiodensity appreciated in the right upper quadrant not appreciated in the upper abdomen prior chest radiograph 01/14/2017 potentially artifactual. OTHER FINDINGS: None. IMPRESSION: No interval acute cardiopulmonary disease appreciated. Pacemaker reiterated. Labs demonstrate anemia and thrombocytopenia, both of which appear chronic when c/w previous. DW pt findings and plan of care. Follow up clinic in 2-3 days for reevaluation. Scribe Attestation: Documented by Natasha Aldridge, acting as a scribe for Bharti Perry MD Provider Scribe Attestation: All medical record entries made by the Scribe were at my direction and personally dictated by me. I have reviewed the chart and agree that the record accurately reflects my personal performance of the history, physical exam, medical decision making, and the department course for this patient. I have also personally directed, reviewed, and agree with the discharge instructions and disposition. Disposition - Clinical Impression Clinical Impression: Weakness Counseled Patient/Family Regarding: Studies Performed, Diagnosis, Need For Followup - Disposition Referrals: [facility] [place] [Outside] (FOLLOW UP AT CLINIC IN 2-3 DAYS FOR REEVALUATION) Disposition: Routine/Home Disposition Time: 16:45 Condition: STABLE Instructions: Weakness (ED) Print Language: SERBIAN
[2018-02-04 16:01] LABS: BASO # 0.1 K/uL (0.0-0.2); BASO % 0.9 % (0.0-2.0); EOS # 0.7 K/uL (0.0-0.7); EOS % 10.7 % (0.0-4.0); HEMOGLOBIN 9.9 g/dL (12.0-16.0); LYMPH # 2.1 K/uL (1.0-4.3); LYMPH % 32.5 % (20.0-40.0); MEAN CELL VOLUME 95.6 fl (81.0-99.0); MEAN CORPUSCULAR HEMOGLOBIN 31.4 pg (27.0-31.0); MEAN CORPUSCULAR HGB CONC 32.8 g/dL (33.0-37.0); MEAN PLATELET VOLUME 9.6 fl (7.2-11.7); MONO # 0.8 K/uL (0.0-0.8); MONO % 13.2 % (0.0-10.0); NEUT # 2.7 K/uL (1.8-7.0); NEUT % 42.7 % (50.0-75.0); RBC 3.16 Mil/uL (3.80-5.20); RED CELL DISTRIBUTION WIDTH 13.5 % (11.5-14.5); WHITE BLOOD COUNT 6.4 K/uL (4.8-10.8)
--- NOTE | 2018-02-04 16:01 | RAD ---
HISTORY: weakness COMPARISON: Chest radiographs 01/31/2017. TECHNIQUE: Chest PA and lateral FINDINGS: LUNGS: No active pulmonary disease. PLEURA: No significant pleural effusion identified. No pneumothorax apparent. CARDIOVASCULAR: Cardiac size is stable. No pulmonary vascular congestion. Bipolar permanent cardiac pacemaker reiterated. OSSEOUS STRUCTURES: No significant abnormalities. VISUALIZED UPPER ABDOMEN: Nonspecific bio oval radiodensity appreciated in the right upper quadrant not appreciated in the upper abdomen prior chest radiograph 01/14/2017 potentially artifactual. OTHER FINDINGS: None. IMPRESSION: No interval acute cardiopulmonary disease appreciated. Pacemaker reiterated.
[2018-02-04 16:19] LABS: ALBUMIN 3.8 g/dL (3.5-5.0); ALT/SGPT 35 U/L (9-52); AST/SGOT 65 U/L (14-36); BLOOD UREA NITROGEN 18 mg/dl (7-17); CALCIUM 9.1 mg/dL (8.4-10.2); GFR AFRICAN-AMERICAN > 60; GFR NON-AFRICAN AMERICAN > 60
[2018-02-04 16:21] LABS: PROTHROMBIN TIME 10.5 Seconds (9.8-13.1)
[2018-02-04 16:31] LABS: B-TYPE NATRIURETIC PEPTIDE 124 pg/ml (0-900)
[2018-02-04 16:50] LABS: T3 1.11 nmol/L (1.49-2.60)
[2018-02-04 17:57] VITALS: BP 146/70; PULSE 78; RESP 18; TEMP 98; O2SAT 100
--- NOTE | 2018-02-06 08:39 | CARD ---
APPROVED REPORT EKG Measurement Heart [id number] <Conclusion> Atrial-sensed ventricular-paced rhythm with prolonged AV conduction Abnormal ECG
== END 2018-02-04 17:30 | disposition home or self-care (01) ==
LOC: H.ER 14:48
DX: R53.1 Weakness (principal); D64.9 Anemia, unspecified; E03.9 Hypothyroidism, unspecified; E78.00 Pure hypercholesterolemia, unspecified; I10 Essential (primary) hypertension; Z95.0 Presence of cardiac pacemaker

== ENCOUNTER 2018-02-18 11:33 | Day surgery (SDC) | payer SELFPAY ==
[2018-02-18 13:22] VITALS: RESP 18; O2SAT 97
[2018-02-18 13:32] VITALS: BMI 32.5
[2018-02-18] MEDS ORDERED: LIDOCAINE 2% 10ML 20 MG/ML VIAL IJ ONE (14:01)
--- NOTE | 2018-02-18 14:08 | CP.SDSHP ---
Same Day Surgery H & P - History Proposed Procedure: US guided FNA of left thyroid nodule Pre-Op Diagnosis: thyroid nodule - Allergies Allergies: Allergies No Known Allergies Allergy (Verified 02/04/18 14:51) - Physical Exam Vital Signs: Vital Signs 02/18/18 02/18/18 13:21 13:25 Temperature 97.9 F Pulse Rate 66 66 Respiratory 18 Rate Blood Pressure 159/65 H O2 Sat by Pulse 97 Oximetry Mental Status: Alert & Oriented x3 - Impression Impression: Pt with a 2.3 cm left thyroid nodule. Plan US guided FNA. Pt. Evaluated Today:Candidate for Anesthesia & Procedure: No - Date & Time Date: 02/18/18 Time: 13:50 Short Stay Discharge - Short Stay Discharge Admitting Diagnosis/Reason for Visit: E04.1 Disposition: HOME/ ROUTINE Referrals: Zoey Newman MD [Primary Care Provider] -
--- NOTE | 2018-02-18 14:10 | PCM.SURG1 ---
Surgeon's Initial Post Op Note - Surgeon's Notes Surgeon: Isaiah Guzman MD Director Of Group Counseling Program: NONE Type of Anesthesia: Local Pre-Operative Diagnosis: Thyroid nodule Operative Findings: US showed a 2.3 cm left thyroid nodule Post-Operative Diagnosis: Thyroid nodule Operation Performed: US guided FNA Specimen/Specimens Removed: 25 g FNA x 5 Estimated Blood Loss: EBL {In ML}: 0 Blood Products Given: N/A Drains Used: No Drains Post-Op Condition: Good Date of Surgery/Procedure: 02/18/18 Time of Surgery/Procedure: 14:05
[2018-02-18 14:32] VITALS: BP 152/80; PULSE 80; TEMP 98.5
== END 2018-02-18 15:00 | disposition home or self-care (01) ==
LOC: H.OPSURG 11:33
PROVIDERS: ATTEND Family Medicine
DX: E04.1 Nontoxic single thyroid nodule (principal)

== ENCOUNTER 2018-03-15 13:19 | Inpatient (IN) | payer SELFPAY ==
[2018-03-15 13:19] VITALS: BMI 32.5
--- NOTE | 2018-03-15 14:22 | ED PDOC ---
Syncope/Near Syncope/Dizziness Time Seen by Provider: 03/15/18 13:50 Chief Complaint (Nursing): Dizziness/Lightheaded Chief Complaint (Provider): Dizziness, Back pain History Per: Patient History/Exam Limitations: no limitations Onset/Duration Of Symptoms: Hrs Current Symptoms Are (Timing): Still Present Fall Associated With With Symptoms: No Additional History Per: Family (Grand daughter) Additional Complaint(s): 82-year-old female presents to the ER accompanied by her granddaughter, who states patient was fine this morning then developed dizziness after going to the bathroom. As per family, patient was in the bathroom for about 10 minutes and came out looking hot and complaining of dizziness and back pain. There was no syncope or fall. Otherwise patient denies any chest pain, SOB, visual changes, slurred speech, weakness, nausea, vomiting, or injuries. Patient reports having similar symptoms in the past but is not taking any medications for it. Past Medical History Reviewed: Historical Data, Nursing Documentation, Vital Signs Vital Signs: Last Vital Signs Temp 97.4 F L 03/15/18 13:35 Pulse 66 03/15/18 13:35 Resp 20 03/15/18 13:35 BP 96/58 L 03/15/18 13:35 Pulse Ox 99 03/15/18 13:35 - Medical History PMH: HTN, Hypercholesterolemia, Hypothyroidism Denies: HIV - Surgical History Surgical History: Pacemaker - Family History Family History: States: Unknown Family Hx, Hypertension - Home Medications Home Medications: Ambulatory Orders Medication Instructions Recorded Losartan [Cozaar] 25 mg PO DAILY tab 01/15/17 Levothyroxine Sodium [Levo-T] 88 mcg PO DAILY 02/04/17 - Allergies Allergies/Adverse Reactions: Allergies Allergy/AdvReac Type Severity Reaction Status Date / Time No Known Allergies Allergy Verified 02/04/18 14:51 Review of Systems ROS Statement: Except As Marked, All Systems Reviewed And Found Negative Constitutional: Positive for: Sweats. Negative for: Fever, Chills Eyes: Negative for: Vision Change Cardiovascular: Negative for: Chest Pain, Palpitations Respiratory: Negative for: Shortness of Breath Gastrointestinal: Negative for: Nausea, Vomiting Genitourinary Female: Negative for: Dysuria, Frequency Musculoskeletal: Positive for: Back Pain Neurological: Positive for: Dizziness. Negative for: Weakness, Numbness, Incoordination, Change in Speech, Altered Mental Status, Headache Physical Exam - Reviewed Nursing Documentation Reviewed: Yes Vital Signs Reviewed: Yes - Physical Exam Appears: Positive for: Non-toxic, No Acute Distress Head Exam: Positive for: ATRAUMATIC, NORMOCEPHALIC Skin: Positive for: Normal Color, Warm, Dry Eye Exam: Positive for: Normal appearance, EOMI, PERRL. Negative for: Nystagmus ENT: Positive for: Normal ENT Inspection Neck: Positive for: Painless ROM, Supple Cardiovascular/Chest: Positive for: Regular Rate, Rhythm. Negative for: Murmur Respiratory: Positive for: Normal Breath Sounds. Negative for: Accessory Muscle Use, Respiratory Distress Pulses-Radial (L): 2+ Pulses-Radial (R): 2+ Gastrointestinal/Abdominal: Positive for: Soft. Negative for: Tenderness, Distended Back: Positive for: L CVA Tenderness, R CVA Tenderness. Negative for: Vertebral Tenderness Extremity: Positive for: Normal ROM. Negative for: Calf Tenderness, Swelling Neurologic/Psych: Positive for: Alert, Oriented (x3). Negative for: Motor/ Sensory Deficits - Laboratory Results Result Diagrams: 03/16/18 05:45 03/16/18 05:45 - ECG O2 Sat by Pulse Oximetry: 99 (RA) Pulse Ox Interpretation: Normal - Radiology X-Ray: Read By Radiologist X-Ray Interpretation: No Acute Disease - CT Scan/US CT Head Other Rad Studies (CT/US): Read By Radiologist, Radiology Report Reviewed Other Rad Interpretation: No acute intracranial pathology. Age-related changes. Medical Decision Making Medical Decision Making: Initial Impression: Vertigo, Back pain Time: 14:07 Initial Plan: --EKG --CMP --Troponin I --CBC --PTT/PT --Urinalysis --Urine dipstick --Chest x-ray --CT Abd/Pelvis with IV contrast --CT Head w/o contrast --Meclizine 50 mg PO --Reassess and disposition Labs reviewed: Negative trop, BUN and creatinine elevated. H&H is 9.4 and 28.2. CXR shows no acute disease. CT A/P: FINDINGS: LOWER THORAX: Scattered ground-glass attenuation in the lung bases. Cardiomegaly. Partially imaged implanted cardiac device leads. LIVER: Unremarkable. No gross lesion or ductal dilatation. GALLBLADDER AND BILE DUCTS: Porcelain gallbladder. Prominent CBD measuring up to 1.3 cm. PANCREAS: Unremarkable. No gross lesion or ductal dilatation. SPLEEN: Unremarkable. ADRENALS: Unremarkable. No mass. KIDNEYS AND URETERS: Small bilateral renal cysts. No hydronephrosis. No solid mass. VASCULATURE: Multiple prominent vessels. No aortic aneurysm. Calcific atherosclerosis. BOWEL: Unremarkable. No obstruction. No gross mural thickening. APPENDIX: Unremarkable. Normal appendix. PERITONEUM: Nonspecific hazy change in the left periaortic region with prominent fatty lymph nodes. No free fluid. No free air. LYMPH NODES: Unremarkable. No enlarged lymph nodes. BLADDER: Unremarkable. REPRODUCTIVE: Unremarkable. BONES: No acute fracture. OTHER FINDINGS: None. IMPRESSION: Nonspecific hazy change in the left periaortic region with prominent fatty lymph nodes. No obstructive uropathy or evidence of recently passed genitourinary calculus. ----- Scribe Attestation: Documented by Valencia Lou, acting as a scribe for Kiara Rowe MD. Provider Scribe Attestation: All medical record entries made by the Scribe were at my direction and personally dictated by me. I have reviewed the chart and agree that the record accurately reflects my personal performance of the history, physical exam, medical decision making, and the department course for this patient. I have also personally directed, reviewed, and agree with the discharge instructions and disposition. Disposition - Clinical Impression Clinical Impression: Renal insufficiency, Vertigo - Patient ED Disposition Is Patient to be Admitted: Yes - Disposition Disposition Time: 18:07 Condition: STABLE - Pt Status Changed To: Hospital Disposition Of: Inpatient - Admit Certification Admit to Inpatient:: After my assessment, the patient will require hospitalization for at least two midnights. This is because of the severity of symptoms shown, intensity of services needed, and/or the medical risk in this patient being treated as an outpatient. - POA Present On Arrival: None
[2018-03-15 14:27] LABS: BASO % 0.5 % (0.0-2.0); EOS # 0.6 K/uL (0.0-0.7); EOS % 8.3 % (0.0-4.0); HEMOGLOBIN 9.4 g/dL (12.0-16.0); LYMPH # 1.2 K/uL (1.0-4.3); LYMPH % 16.8 % (20.0-40.0); MEAN CELL VOLUME 96.3 fl (81.0-99.0); MEAN CORPUSCULAR HEMOGLOBIN 32.1 pg (27.0-31.0); MEAN CORPUSCULAR HGB CONC 33.4 g/dL (33.0-37.0); MEAN PLATELET VOLUME 9.4 fl (7.2-11.7); MONO # 0.7 K/uL (0.0-0.8); MONO % 10.6 % (0.0-10.0); NEUT # 4.4 K/uL (1.8-7.0); NEUT % 63.8 % (50.0-75.0); RBC 2.93 Mil/uL (3.80-5.20); RED CELL DISTRIBUTION WIDTH 13.7 % (11.5-14.5); WHITE BLOOD COUNT 6.9 K/uL (4.8-10.8)
[2018-03-15 14:30] LABS: PROTHROMBIN TIME 11.3 Seconds (9.8-13.1)
[2018-03-15 14:32] LABS: PARTIAL THROMBOPLASTIN TIME 29.5 Seconds (25.6-37.1)
[2018-03-15 14:37] LABS: ALB/GLOB RATIO 1.1 (1.0-2.1); ALBUMIN 3.7 g/dL (3.5-5.0); CALCIUM 9.1 mg/dL (8.4-10.2)
--- NOTE | 2018-03-15 14:37 | RAD ---
Date of service: 03/15/2018 HISTORY: Dizziness COMPARISON: Chest radiograph dated 02/04/2018. FINDINGS: LUNGS: Stable chronic prominence of the bilateral interstitial markings. No focal consolidation. PLEURA: No significant pleural effusion identified, no pneumothorax apparent. CARDIOVASCULAR: Left subclavian access pacemaker redemonstrated. Atherosclerotic aortic calcifications. Cardiomediastinal silhouette stably enlarged. OSSEOUS STRUCTURES: Unchanged. VISUALIZED UPPER ABDOMEN: Normal. OTHER FINDINGS: None. IMPRESSION: No active disease.
[2018-03-15 14:47] LABS: TROPONIN I 0.014 ng/mL (0.00-0.120)
--- NOTE | 2018-03-15 15:26 | CT ---
Date of service: 03/15/2018 PROCEDURE: CT HEAD WITHOUT CONTRAST. HISTORY: Vertigo COMPARISON: CT head dated 05/09/2018 TECHNIQUE: Axial computed tomography images were obtained through the head/brain without intravenous contrast. Radiation dose: Total exam DLP = 800.1 mGy-cm. This CT exam was performed using one or more of the following dose reduction techniques: Automated exposure control, adjustment of the mA and/or kV according to patient size, and/or use of iterative reconstruction technique. FINDINGS: HEMORRHAGE: No intracranial hemorrhage. BRAIN: No mass effect or edema. Atrophy. Chronic microvascular ischemic changes. Left basal ganglia lacunar infarction. VENTRICLES: Unremarkable. No hydrocephalus. CALVARIUM: Unremarkable. PARANASAL SINUSES: Unremarkable as visualized. No significant inflammatory changes. MASTOID AIR CELLS: Unremarkable as visualized. No inflammatory changes. OTHER FINDINGS: None. IMPRESSION: No acute intracranial pathology. Age-related changes.
--- NOTE | 2018-03-15 15:41 | CT ---
Date of service: 03/15/2018 PROCEDURE: CT Abdomen and Pelvis without intravenous contrast HISTORY: Flank pain COMPARISON: None. TECHNIQUE: Contiguous images were obtained from the domes of the diaphragms to the upper thighs without the administration of intravenous contrast. Oral contrast was not administered. Radiation dose: Total exam DLP = 692.7 mGy-cm. This CT exam was performed using one or more of the following dose reduction techniques: Automated exposure control, adjustment of the mA and/or kV according to patient size, and/or use of iterative reconstruction technique. FINDINGS: LOWER THORAX: Scattered ground-glass attenuation in the lung bases. Cardiomegaly. Partially imaged implanted cardiac device leads. LIVER: Unremarkable. No gross lesion or ductal dilatation. GALLBLADDER AND BILE DUCTS: Porcelain gallbladder. Prominent CBD measuring up to 1.3 cm. PANCREAS: Unremarkable. No gross lesion or ductal dilatation. SPLEEN: Unremarkable. ADRENALS: Unremarkable. No mass. KIDNEYS AND URETERS: Small bilateral renal cysts. No hydronephrosis. No solid mass. VASCULATURE: Multiple prominent vessels. No aortic aneurysm. Calcific atherosclerosis. BOWEL: Unremarkable. No obstruction. No gross mural thickening. APPENDIX: Unremarkable. Normal appendix. PERITONEUM: Nonspecific hazy change in the left periaortic region with prominent fatty lymph nodes. No free fluid. No free air. LYMPH NODES: Unremarkable. No enlarged lymph nodes. BLADDER: Unremarkable. REPRODUCTIVE: Unremarkable. BONES: No acute fracture. OTHER FINDINGS: None. IMPRESSION: Nonspecific hazy change in the left periaortic region with prominent fatty lymph nodes. No obstructive uropathy or evidence of recently passed genitourinary calculus.
--- NOTE | 2018-03-15 17:20 | CP.PCM.HP ---
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 As per patient, this afternoon she went to bathroom to pee and suddenly started feeling hot and dizzy. Patient was fine in the morning, it started all the sudden, dizziness associated with blurred vision, ringing in ears and back pain. Denies any palpitations, falls, LOC, trauma. Patient reports having same episodes in past for few times. Denies any fever, nausea, vomiting, diarrhea. reports good appetite, no sick contact or recent travel. Patient denies chest pain, SOB, abdominal pain, urinary symptoms/ dysuria or skin rashes. Patient is [place] speaking, [employer] [id number] PMD: Dr. 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 Maria Fernanda Hall # [phone] ROS: As per HPI ER Course: VS: 97.4 TM, HR 66, BP 96/58, RR 20, Spo2 99% RA CBC: Significant for H/H 9.4/28.2 CMP: Significant for BUN/Cr 24/1.7, ALK Phos 140 UA: Large LeukE and WBC 31 CXR: no acute disease EKG: Paced rhythm Head CT: No acute changes, age appropriate findings Abdo/Pelvis CT: No obstructive uropathy S/p Antivert 50mg PO Present on Admission - Present on Admission Any Indicators Present on Admission: No Past Patient History - Past Medical History & Family History Past Medical History?: Yes - Past Social History Smoking Status: Never Smoked - CARDIAC Hx Hypercholesterolemia: Yes Hx Hypertension: Yes Hx Pacemaker: Yes - NEUROLOGICAL Hx Dizziness: Yes - ENDOCRINE/METABOLIC Hx Hypothyroidism: Yes - HEMATOLOGICAL/ONCOLOGICAL Hx Human Immunodeficiency Virus (HIV): No - MUSCULOSKELETAL/RHEUMATOLOGICAL Hx Falls: No - PSYCHIATRIC Hx Emotional Abuse: No Hx Physical Abuse: No Hx Substance Use: No - SURGICAL HISTORY Hx Surgeries: Yes Other/Comment: pacemaker insertion - ANESTHESIA Hx Anesthesia: Yes Hx Anesthesia Reactions: No Hx Malignant Hyperthermia: No Meds Allergies/Adverse Reactions: Allergies Allergy/AdvReac Type Severity Reaction Status Date / Time No Known Allergies Allergy Verified 02/04/18 14:51 Physical Exam - Constitutional Appears: No Acute Distress - Head Exam Head Exam: NORMAL INSPECTION - Eye Exam Eye Exam: EOMI, Normal appearance, PERRL Pupil Exam: NORMAL ACCOMODATION - ENT Exam ENT Exam: Mucous Membranes Moist - Neck Exam Neck exam: Positive for: Normal Inspection - Respiratory Exam Respiratory Exam: Clear to Auscultation Bilateral, NORMAL BREATHING PATTERN. absent: Accessory Muscle Use, Chest Wall Tenderness, Decreased Breath Sounds, Prolonged Expiratory Phase, Rales, Rhonchi, Wheezes, Respiratory Distress - Cardiovascular Exam Cardiovascular Exam: REGULAR RHYTHM, +S1, +S2 - GI/Abdominal Exam GI & Abdominal Exam: Normal Bowel Sounds, Soft. absent: Hernia, Rigid, Tenderness - Extremities Exam Extremities exam: Positive for: normal inspection, pedal pulses present. Negative for: pedal edema, tenderness - Back Exam Back exam: NORMAL INSPECTION. absent: CVA tenderness (L), CVA tenderness (R) - Neurological Exam Neurological exam: Alert, CN II-XII Intact, Oriented x3 - Psychiatric Exam Psychiatric exam: Normal Affect - Skin Skin Exam: Dry, Intact, Normal Color, Warm Results - Vital Signs Recent Vital Signs: Last Vital Signs Temp 97.4 F L 03/15/18 13:35 Pulse 66 03/15/18 13:35 Resp 20 03/15/18 13:35 BP 96/58 L 03/15/18 13:35 Pulse Ox 99 03/15/18 17:11 - Labs Result Diagrams: 03/15/18 14:22 03/15/18 14:22 Labs: Laboratory Results - last 24 hr 03/15/18 03/15/18 03/15/18 14:22 14:22 14:22 WBC 6.9 RBC 2.93 L Hgb 9.4 L Hct 28.2 L MCV 96.3 MCH 32.1 H MCHC 33.4 RDW 13.7 Plt Count 111 L MPV 9.4 Neut % (Auto) 63.8 Lymph % (Auto) 16.8 L [place] % (Auto) 10.6 H Eos % (Auto) 8.3 H Baso % (Auto) 0.5 Neut # (Auto) 4.4 Lymph # (Auto) 1.2 [place] # (Auto) 0.7 Eos # (Auto) 0.6 Baso # (Auto) 0.0 PT 11.3 INR 1.0 APTT 29.5 Sodium 141 Potassium 4.8 Chloride 107 Carbon Dioxide 26 Anion Gap 13 BUN 24 H Creatinine 1.7 H Est GFR ( Amer) 35 Est GFR (Non-Af Amer) 29 Random Glucose 120 H Calcium 9.1 Total Bilirubin 0.8 AST 59 H ALT 49 Alkaline Phosphatase 140 H Troponin I 0.0140 Total Protein 7.2 Albumin 3.7 Globulin 3.5 Albumin/Globulin Ratio 1.1 Assessment & Plan - Assessment and Plan (Free Text) Assessment: A/P: 82 y/o F with PMH of HTN, hypothyroidism, benign thyroid nodule and AV heart block s/p pacemaker (01/2017) admitted to [facility] for evaluation and treatment of dizziness, elevated BUN/Cr, generalized weakness and back pain. Acute kidney injury - BUN/Cr : 24/1.7, Trending up since last few years - Nephrology Consult, Dr. Cox, will follow recommendations - IVF Hypertension - Chronic, Stable - C/w Losartan 25mg daily PO Dizziness, generalized weakness possibly related to chronic anemia - Anemia possibly due to intermittent GI bleed - History of positive FIT and FOBT test, patient was referred to GI as outpatient - Symptomatic treatments Hypothyroidism - Chronic, - Controlled on Levothyroxine 88 mcg PO daily Thyroid nodule - Thyroid U/S 02/04/18: 2.3cm left thyroid nodule - FNA 02/18/18: Benign findings - C.w out patient follow up History of positive FIT and FOBT in past - Patient was given out patient GI referral by PMD - C/w out patient management Full code Emergency contact, daughter Ms. Maria Fernanda Hall # [phone]
[2018-03-15] MEDS ORDERED: Sodium Chloride 0.9% 500 ML IV ONE (20:16)
[2018-03-15 23:41] LABS: SQUAMOUS EPITHIAL 1 /hpf (0-5); URINE BACTERIA RARE (<OCC); URINE BILIRUBIN NEGATIVE (NEGATIVE); URINE BLOOD NEGATIVE (NEGATIVE); URINE CLARITY CLEAR (Clear); URINE GLUCOSE (UA) NEG (Normal); URINE LEUKOCYTE ESTERASE LARGE Leu/uL (Negative); URINE PROTEIN NEGATIVE (NEGATIVE); URINE UROBILINOGEN 0.2-1.0 mg/dL (0.2-1.0)
[2018-03-15 23:46] LABS: URINE COLOR LIGHT YELLOW (YELLOW)
[2018-03-16 00:28] VITALS: RESP 18
[2018-03-16 07:13] LABS: BASO % 0.7 % (0.0-2.0); EOS # 0.6 K/uL (0.0-0.7); EOS % 12.1 % (0.0-4.0); HEMOGLOBIN 9.2 g/dL (12.0-16.0); LYMPH # 1.6 K/uL (1.0-4.3); LYMPH % 29.8 % (20.0-40.0); MEAN CELL VOLUME 95.9 fl (81.0-99.0); MEAN CORPUSCULAR HEMOGLOBIN 32.5 pg (27.0-31.0); MEAN CORPUSCULAR HGB CONC 33.9 g/dL (33.0-37.0); MEAN PLATELET VOLUME 10.4 fl (7.2-11.7); MONO # 0.6 K/uL (0.0-0.8); NEUT # 2.4 K/uL (1.8-7.0); NEUT % 45.4 % (50.0-75.0); RBC 2.84 Mil/uL (3.80-5.20); RED CELL DISTRIBUTION WIDTH 13.5 % (11.5-14.5); WHITE BLOOD COUNT 5.4 K/uL (4.8-10.8)
[2018-03-16 07:19] LABS: CALCIUM 9.1 mg/dL (8.4-10.2)
[2018-03-16] MEDS ORDERED: Levothyroxine 88 MCG TAB PO SCH (09:00)
[2018-03-16 12:33] VITALS: PULSE 60
--- NOTE | 2018-03-16 15:09 | CP.PCM.DIS ---
Provider - Provider Date of Admission: 03/15/18 18:07 Attending physician: Devorah Ellsworth MD Time Spent in preparation of Discharge (in minutes): 30 Hospital Course - Lab Results Lab Results: Most Recent Lab Values WBC 5.4 K/uL (4.8-10.8) 03/16/18 05:45 RBC 2.84 Mil/uL (3.80-5.20) L 03/16/18 05:45 Hgb 9.2 g/dL (12.0-16.0) L 03/16/18 05:45 Hct 27.3 % (34.0-47.0) L 03/16/18 05:45 MCV 95.9 fl (81.0-99.0) 03/16/18 05:45 MCH 32.5 pg (27.0-31.0) H 03/16/18 05:45 MCHC 33.9 g/dL (33.0-37.0) 03/16/18 05:45 RDW 13.5 % (11.5-14.5) 03/16/18 05:45 Plt Count 100 K/uL (130-400) L 03/16/18 05:45 MPV 10.4 fl (7.2-11.7) 03/16/18 05:45 Neut % (Auto) 45.4 % (50.0-75.0) L 03/16/18 05:45 Lymph % (Auto) 29.8 % (20.0-40.0) 03/16/18 05:45 [place] % (Auto) 12.0 % (0.0-10.0) H 03/16/18 05:45 Eos % (Auto) 12.1 % (0.0-4.0) H 03/16/18 05:45 Baso % (Auto) 0.7 % (0.0-2.0) 03/16/18 05:45 Neut # (Auto) 2.4 K/uL (1.8-7.0) 03/16/18 05:45 Lymph # (Auto) 1.6 K/uL (1.0-4.3) 03/16/18 05:45 [place] # (Auto) 0.6 K/uL (0.0-0.8) 03/16/18 05:45 Eos # (Auto) 0.6 K/uL (0.0-0.7) 03/16/18 05:45 Baso # (Auto) 0.0 K/uL (0.0-0.2) 03/16/18 05:45 PT 11.3 Seconds (9.8-13.1) 03/15/18 14:22 INR 1.0 03/15/18 14:22 APTT 29.5 Seconds (25.6-37.1) 03/15/18 14:22 Sodium 142 mmol/l (132-148) 03/16/18 05:45 Potassium 4.7 MMOL/L (3.6-5.0) 03/16/18 05:45 Chloride 111 mmol/L (98-107) H 03/16/18 05:45 Carbon Dioxide 25 mmol/L (22-30) 03/16/18 05:45 Anion Gap 11 (10-20) 03/16/18 05:45 BUN 23 mg/dl (7-17) H 03/16/18 05:45 Creatinine 1.1 mg/dl (0.7-1.2) 03/16/18 05:45 Est GFR ( Amer) 58 03/16/18 05:45 Est GFR (Non-Af Amer) 48 03/16/18 05:45 Random Glucose 93 mg/dL (65-105) 03/16/18 05:45 Calcium 9.1 mg/dL (8.4-10.2) 03/16/18 05:45 Total Bilirubin 0.8 mg/dl (0.2-1.3) 03/15/18 14:22 AST 59 U/L (14-36) H 03/15/18 14:22 ALT 49 U/L (9-52) 03/15/18 14:22 Alkaline Phosphatase 140 U/L (38-126) H 03/15/18 14:22 Troponin I 0.0140 ng/mL (0.00-0.120) 03/15/18 14:22 Total Protein 7.2 G/DL (6.3-8.2) 03/15/18 14:22 Albumin 3.7 g/dL (3.5-5.0) 03/15/18 14:22 Globulin 3.5 gm/dL (2.2-3.9) 03/15/18 14:22 Albumin/Globulin Ratio 1.1 (1.0-2.1) 03/15/18 14:22 TSH 3rd Generation 2.90 mIU/ML (0.46-4.68) 03/16/18 06:01 Urine Color Light yellow (YELLOW) 03/15/18 23:23 Urine Clarity Clear (Clear) 03/15/18 23:23 Urine pH 7.0 (5.0-8.0) 03/15/18 23:23 Ur Specific [place] 1.008 (1.003-1.030) 03/15/18 23:23 Urine Protein Negative mg/dL (NEGATIVE) 03/15/18 23:23 Urine Glucose (UA) Neg mg/dL (Normal) 03/15/18 23:23 Urine Ketones Negative mg/dL (NEGATIVE) 03/15/18 23:23 Urine Blood Negative (NEGATIVE) 03/15/18 23:23 Urine Nitrate Negative (NEGATIVE) 03/15/18 23:23 Urine Bilirubin Negative (NEGATIVE) 03/15/18 23:23 Urine Urobilinogen 0.2-1.0 mg/dL (0.2-1.0) 03/15/18 23:23 Ur Leukocyte Esterase Large [place]/uL (Negative) 03/15/18 23:23 Urine RBC (Auto) 2 /hpf (0-3) 03/15/18 23:23 Urine Microscopic WBC 31 /hpf (0-5) H 03/15/18 23:23 Ur Squamous Epith Cells 1 /hpf (0-5) 03/15/18 23:23 Urine Bacteria Rare (<OCC) 03/15/18 23:23 Ur Random Creatinine 46.8 mg/dL 03/15/18 23:23 Ur Random Sodium 50 meq/L 03/15/18 23:23 Ur Random Potassium 18.7 mmol/L 03/15/18 23:23 - Hospital Course Hospital Course: 82 yr old F admitted for acute kidney injury and dizziness with PMHx of HTN, hypothyroidism, benign thyroid nodule and AV heart block s/p pacemaker (01/2017) . Patient was monitored in telemetry, SHAZIA and symptoms resolved with treatment including Meclizine 50mg PO, IV fluids. CXR was negative for active disease, EKG showed a paced rhythm, Head CT was negative for abnormality, CT abd/pelvis was negative for evidence of obstructive uropathy or recently passed genitourinary calculus. Patient was discharged stable, ambulating with normal gait. Instructions were given to follow up with your PMD Dr. Denton at [facility] within 1 week, resume home medications as prescribed , ensure adequate hydration with 8 cups of water daily, ER precautions reviewed- return to ED if any concerns, persistent or worsening symptoms. Recommend referral to rhythmic gymnastics coach as outpatient. Medications on discharge: -Levothyroxine 88 mcg PO QD -Losartan 25mg PO QD - Date & Time of H&P Date of H&P: 03/15/18 Time of H&P: 17:20 Discharge Exam - Head Exam Head Exam: NORMAL INSPECTION - Eye Exam Eye Exam: EOMI - ENT Exam ENT Exam: Mucous Membranes Moist - Respiratory Exam Respiratory Exam: Clear to PA & Lateral, NORMAL BREATHING PATTERN - Cardiovascular Exam Cardiovascular Exam: REGULAR RHYTHM, +S1, +S2 - GI/Abdominal Exam GI & Abdominal Exam: Normal Bowel Sounds, Soft. absent: Tenderness - Extremities Exam Extremities exam: full ROM, normal capillary refill, normal inspection, pedal pulses present - Neurological Exam Neurological exam: Alert, CN II-XII Intact, Normal Gait, Oriented x3 Additional comments: strength 5/5 in bilateral upper and lower extremities - Psychiatric Exam Psychiatric exam: Normal Affect, Normal Mood - Skin Skin Exam: Dry, Normal Color, Warm Discharge Plan - Follow Up Plan Condition: STABLE Disposition: HOME/ ROUTINE Instructions: Vertigo (a Type of Dizziness) (DC), Acute Kidney Failure (DC) Additional Instructions: -Follow up with your PMD Dr. Denton at [facility] within 1 week (make appointment at [phone]) -Resume home medications as prescribed -Ensure adequate hydration with 8 cups of water daily -Er precautions reviewed-return to ED if any concerns, persistent or worsening symptoms Referrals: Jamie Denton MD [Resident] -
[2018-03-16 16:23] VITALS: BP 160/67; TEMP 98
--- NOTE | 2018-03-16 18:31 | CARD ---
APPROVED REPORT Date of service: 03/15/2018 EKG Measurement Heart [id number] <Conclusion> Atrial-sensed ventricular-paced rhythm with prolonged AV conduction Abnormal ECG
[2018-03-17 02:11] LABS: URINE BILIRUBIN NEGATIVE (NEGATIVE); URINE BLOOD NEGATIVE (NEGATIVE); URINE CLARITY CLEAR (Clear); URINE COLOR STRAW (YELLOW); URINE GLUCOSE (UA) NEG (Normal); URINE LEUKOCYTE ESTERASE NEG Leu/uL (Negative); URINE PROTEIN NEGATIVE (NEGATIVE); URINE UROBILINOGEN 0.2-1.0 mg/dL (0.2-1.0)
[2018-03-17 09:36] VITALS: O2SAT 99
== END 2018-03-16 17:00 | disposition home or self-care (01) | DRG 684 ==
LOC: H.ER 13:19 → H.ERHOLD 18:07 → H.TEL 23:30
PROVIDERS: ADMIT Family Medicine Geriatric Medicine; ATTEND Family Medicine Geriatric Medicine
DX: N17.9 Acute kidney failure, unspecified (principal); I10 Essential (primary) hypertension; E78.00 Pure hypercholesterolemia, unspecified; E03.9 Hypothyroidism, unspecified; Z95.0 Presence of cardiac pacemaker; D53.9 Nutritional anemia, unspecified; E04.1 Nontoxic single thyroid nodule